=== PATIENT | female | born 1980 | race Caucasian/White ===

== ENCOUNTER 2017-01-20 17:18 | Observation (INO) | payer OTHER ==
[2017-01-20] MEDS ORDERED: PEPCID 20 MG IV PREMIX* 50 ML IV SCH (18:02)
[2017-01-20] MEDS ORDERED: NORCO 5/325 MG TAB PO PRN (18:02)
[2017-01-20] MEDS ORDERED: ZOFRAN INJ 4 MG VIAL IVP PRN (18:02)
[2017-01-20] MEDS ORDERED: IMITREX INJ SC ONE ×2 (18:02→20:00)
[2017-01-20] MEDS ORDERED: TYLENOL 325 MG TAB PO PRN (18:02)
[2017-01-20] MEDS ORDERED: AMBIEN PO PRN (18:02)
[2017-01-20 18:22] LABS: BASOPHILS # (AUTO) 0.1 X10^3/uL (0.0-0.1); BASOPHILS % (AUTO) 0.6 % (0.2-1.0); EOSINOPHILS # (AUTO) 0.1 x10^3/uL (0.0-0.2); EOSINOPHILS % (AUTO) 0.4 % (0.9-2.9); HEMATOCRIT 39.9 % (36.0-47.0); HEMOGLOBIN 13.1 g/dL (12.0-16.0); LYMPHOCYTES % (AUTO) 20.9 % (21.0-51.0); MEAN CORPUSCULAR HGB CONC 32.9 g/dL (33.0-35.0); MEAN PLATELET VOLUME 10.2 fL (7.4-11.0); MONOCYTES # (AUTO) 0.8 x10^3/uL (0.3-0.8); MONOCYTES % (AUTO) 5.7 % (0.0-13.0); NEUTROPHILS # (AUTO) 10.5 x10^3/uL (2.2-4.8); NEUTROPHILS % (AUTO) 72.4 % (42.0-75.0); PLATELET COUNT 210 X10^3/uL (150.0-450.0); RED BLOOD COUNT 4.87 X10^6/uL (3.5-5.4); RED CELL DISTRIBUTION WIDTH 12.8 % (11.6-16.5); WHITE BLOOD COUNT 14.5 X10^3/uL (3.6-10.0)
[2017-01-20 18:40] LABS: ALANINE AMINOTRANSFERASE 17 Units/L (12-78); ALBUMIN 3.6 g/dL (3.4-5.0); ALKALINE PHOSPHATASE 115 Units/L (46-116); BLOOD UREA NITROGEN 5 mg/dL (7-18); CHLORIDE 103 mmol/L (98-107); CREATININE 0.77 mg/dL (0.55-1.02); GLUCOSE 107 mg/dL (65-99); MAGNESIUM 1.6 mg/dL (1.7-2.9); SODIUM 140 mmol/L (136-145); eGFR BLACK RACES > 60 (>60); eGFR NON BLACK RACES > 60 (>60)
[2017-01-20 18:52] LABS: ASPARTATE AMINO TRANSFERASE 11 Units/L (15-37); CARBON DIOXIDE 28.2 mmol/L (21-32)
[2017-01-20] MEDS: NS 1000 ML 1,000 ML IV SCH (20:16)
[2017-01-20] MEDS: PHENERGAN INJ 25 MG IV PRN (20:17)
[2017-01-20] MEDS: PEPCID 20 MG IV PREMIX* 20 MG/50 ML BAG IV SCH (20:17)
[2017-01-20] MEDS: DEMEROL INJ IVP PRN (20:18)
[2017-01-21] MEDS: PHENERGAN INJ 25 MG IV PRN (01:57)
[2017-01-21] MEDS: DEMEROL INJ IVP PRN (03:32)
[2017-01-21] MEDS ORDERED: ZOFRAN INJ 4 MG VIAL 16 MG, ATIVAN INJ 2 MG VIAL 1 MG, DECADRON INJ 10 MG in NS 50 ML I... IV ONE ×2 (08:27→09:30)
--- NOTE | 2017-01-21 08:33 | DR.H&P ---
H&P - History & Physical for Day of: H&P Date: 01/20/17 - Chief Complaint Chief Complaint: SEVERE HEADACHE, N/V, WEAK "FEELS DEHYDRATED" - Allergies Allergies/Adverse Reactions: Allergies Allergy/AdvReac Type Severity Reaction Status Date / Time Doxycycline Allergy Verified 11/23/16 15:10 - History of Present Illness History of Present Illness: DIRECT ADMIT FROM DR CORDERO OFFICE WITH INTRACTABLE MIGRAINE. PT WAS TREATED ONE DAY AGO FOR ACUTE MIGRAINE IN OFFICE AND ON TUESDAY IN [facility] ER WITHOUT RELIEF. PLAN TO ADMIT, IVHYDRATION LABS ON ADMISSION. PAIN AND NAUSEA CONTROL. - Past Medical History Past Medical History: Asthma, Migraines, GERD, Headaches - Past Surgical History Surgical History: Cholecystectomy, Hysterectomy - Family History Family Medical History: Diabetes Mellitus, Cancer, [place], Hypertension - Social History Does patient currently use any type of tobacco product: Yes Have you used tobacco products in the last 12 months: Yes Type of Tobacco Use: Cigarettes Does any household member use tobacco: Yes Alcohol Use: None Drug Use: None - Medications Home Medications: Gabapentin [Gabapentin] 100 mg PO PRN PRN 01/20/17 [History Confirmed 01/20/17] - Review of Systems Constitutional: Other (APPEARS IN PAIN) Eyes: Other (PHOTOPHOBIA) ENT: No Symptoms Reported Respiratory: No Symptoms Reported Cardiovascular: No Symptoms Reported Genitourinary: No Symptoms Reported Musculoskeletal: No Symptoms Reported Skin: No Symptoms Reported Neurological: Other (HEADACHE) - Physical Exam Vital Signs: Temperature 99.2 F Pulse Rate [Right] 69 Respiratory Rate 18 Blood Pressure [Right Arm] 78/45 Blood Pressure [Left Arm] 99/60 Blood Pressure [Right Arm] 95/54 Blood Pressure 109/59 O2 Sat by Pulse Oximetry 97 Oriented: Normal Eyes: Normal Ear: Normal Nose: Normal Throat: Dry Respiratory: Clear Throughout Cardiovascular: Normal : Normal Auscultation: Bowel Sounds: Normal Palpation: Normal Tenderness: Normal Skin: Decreased Turgur Musculoskeletal: Back:Lumbar Mood Description: Depressed Speech Pattern: Clear, Appropriate - Assessment/Plan (1) Intractable migraine without aura and with status migrainosus Status: Acute Plan: ADMIT, IV HYDRATION,. ADMISSION LABS, PAIN AND NAUSEA CONTROL (2) Nausea and vomiting Qualifiers: Vomiting type: V Vomiting Intractability: V Status: Acute (3) GERD (gastroesophageal reflux disease) Qualifiers: Esophagitis presence: E Status: Chronic
[2017-01-21 08:53] LABS: BASOPHILS # (AUTO) 0.1 X10^3/uL (0.0-0.1); BASOPHILS % (AUTO) 0.9 % (0.2-1.0); EOSINOPHILS # (AUTO) 0.2 x10^3/uL (0.0-0.2); EOSINOPHILS % (AUTO) 1.4 % (0.9-2.9); HEMATOCRIT 34.5 % (36.0-47.0); HEMOGLOBIN 11.3 g/dL (12.0-16.0); LYMPHOCYTES # (AUTO) 3.6 X10^3/uL (1.3-2.9); LYMPHOCYTES % (AUTO) 30.5 % (21.0-51.0); MEAN CORPUSCULAR HEMOGLOBIN 27.2 pg (27.0-34.0); MEAN CORPUSCULAR HGB CONC 32.8 g/dL (33.0-35.0); MEAN CORPUSCULAR VOLUME 83.1 fL (80.0-100.0); MEAN PLATELET VOLUME 10.3 fL (7.4-11.0); MONOCYTES # (AUTO) 0.6 x10^3/uL (0.3-0.8); MONOCYTES % (AUTO) 5.5 % (0.0-13.0); NEUTROPHILS # (AUTO) 7.2 x10^3/uL (2.2-4.8); NEUTROPHILS % (AUTO) 61.7 % (42.0-75.0); PLATELET COUNT 164 X10^3/uL (150.0-450.0); RED BLOOD COUNT 4.15 X10^6/uL (3.5-5.4); WHITE BLOOD COUNT 11.7 X10^3/uL (3.6-10.0)
[2017-01-21] MEDS ORDERED: K-LYTE EFFERVESCENT PO SCH (09:00)
[2017-01-21 09:03] LABS: ALANINE AMINOTRANSFERASE 14 Units/L (12-78); ALBUMIN 2.9 g/dL (3.4-5.0); ALKALINE PHOSPHATASE 94 Units/L (46-116); ASPARTATE AMINO TRANSFERASE 10 Units/L (15-37); BLOOD UREA NITROGEN 8 mg/dL (7-18); CARBON DIOXIDE 26.8 mmol/L (21-32); CHLORIDE 106 mmol/L (98-107); COR CA(FOR HYPOALB) 8.9 mg/dL (8.5-10.1); CREATININE 0.79 mg/dL (0.55-1.02); GLUCOSE 106 mg/dL (65-99); MAGNESIUM 1.6 mg/dL (1.7-2.9); SODIUM 140 mmol/L (136-145); TOTAL PROTEIN 5.7 g/dL (6.4-8.2); eGFR BLACK RACES > 60 (>60); eGFR NON BLACK RACES > 60 (>60)
[2017-01-21] MEDS: PEPCID 20 MG IV PREMIX* 20 MG/50 ML BAG IV SCH (09:43)
[2017-01-21] MEDS: NS 1000 ML 1,000 ML IV SCH ×2 (12:03→12:04)
[2017-01-21 13:45] VITALS: BP 87/54
== END 2017-01-21 14:50 | disposition home or self-care (01) ==
LOC: OBS 17:18
PROVIDERS: ADMIT Internal Medicine; ATTEND Internal Medicine
DX: G43.011 Migraine without aura, intractable, with status migrainosus (principal); R11.2 Nausea with vomiting, unspecified; D72.828 Other elevated white blood cell count; K21.9 Gastro-esophageal reflux disease without esophagitis; E87.6 Hypokalemia
CPT/HCPCS: 36415; 80053; 83735; 84132; 85025; A4222; S0028; G0378; J2175; J2405; J2550; J3030

== ENCOUNTER 2017-01-27 10:07 | Day surgery (SDC) | payer OTHER ==
[2017-01-27] MEDS ORDERED: D5 LR 1000 ML 1,000 ML IV ONE (10:36)
[2017-01-27] MEDS ORDERED: DIPRIVAN VIAL 20 ML ONE (12:05)
[2017-01-27 14:40] VITALS: BP 100/60
== END 2017-01-27 12:48 | disposition home or self-care (01) ==
LOC: SURG1 10:07
PROVIDERS: ATTEND Internal Medicine Gastroenterology
PROC: 0DJ08ZZ Inspection of Upper Intestinal Tract, Via Natural or Artificial Opening Endoscopic (ICD-10-PCS; principal; 2017-01-27 14:45)
PROC: 0DB88ZX Excision of Small Intestine, Via Natural or Artificial Opening Endoscopic, Diagnostic (ICD-10-PCS; principal; 2017-01-27 14:45)
PROC: 0D757ZZ Dilation of Esophagus, Via Natural or Artificial Opening (ICD-10-PCS; principal; 2017-01-27 14:45)
PROC: 0DB68ZX Excision of Stomach, Via Natural or Artificial Opening Endoscopic, Diagnostic (ICD-10-PCS; principal; 2017-01-27 14:45)
DX: R13.19 Other dysphagia (principal); R11.2 Nausea with vomiting, unspecified; R10.13 Epigastric pain; K21.9 Gastro-esophageal reflux disease without esophagitis; R19.7 Diarrhea, unspecified; K20.8 Other esophagitis; K22.2 Esophageal obstruction; K22.4 Dyskinesia of esophagus; K29.60 Other gastritis without bleeding
CPT/HCPCS: A4217; J3490; J7120

== ENCOUNTER → 2017-04-26 | Outpatient (CLI) | payer OTHER ==
[2017-04-26 09:32] LABS: BASOPHILS # (AUTO) 0.1 X10^3/uL (0.0-0.1); BASOPHILS % (AUTO) 0.5 % (0.2-1.0); EOSINOPHILS % (AUTO) 0.1 % (0.9-2.9); HEMATOCRIT 39.5 % (36.0-47.0); HEMOGLOBIN 13.4 g/dL (12.0-16.0); LYMPHOCYTES # (AUTO) 1.9 X10^3/uL (1.3-2.9); LYMPHOCYTES % (AUTO) 14.3 % (21.0-51.0); MEAN CORPUSCULAR HEMOGLOBIN 27.8 pg (27.0-34.0); MEAN CORPUSCULAR HGB CONC 33.8 g/dL (33.0-35.0); MEAN CORPUSCULAR VOLUME 82.1 fL (80.0-100.0); MEAN PLATELET VOLUME 10.5 fL (7.4-11.0); MONOCYTES # (AUTO) 0.7 x10^3/uL (0.3-0.8); MONOCYTES % (AUTO) 5.1 % (0.0-13.0); NEUTROPHILS # (AUTO) 10.6 x10^3/uL (2.2-4.8); PLATELET COUNT 219 X10^3/uL (150.0-450.0); RED BLOOD COUNT 4.82 X10^6/uL (3.5-5.4); RED CELL DISTRIBUTION WIDTH 13.3 % (11.6-16.5); WHITE BLOOD COUNT 13.2 X10^3/uL (3.6-10.0)
[2017-04-26 09:44] LABS: ALANINE AMINOTRANSFERASE 15 Units/L (12-78); ALBUMIN 3.6 g/dL (3.4-5.0); ALKALINE PHOSPHATASE 134 Units/L (46-116); ASPARTATE AMINO TRANSFERASE 12 Units/L (15-37); BLOOD UREA NITROGEN 5 mg/dL (7-18); CALCIUM 9.3 mg/dL (8.5-10.1); CARBON DIOXIDE 28.2 mmol/L (21-32); CHLORIDE 103 mmol/L (98-107); GLUCOSE 100 mg/dL (65-99); SODIUM 141 mmol/L (136-145); TOTAL PROTEIN 7.3 g/dL (6.4-8.2); eGFR BLACK RACES > 60 (>60); eGFR NON BLACK RACES > 60 (>60)
--- NOTE | 2017-04-26 09:50 | RAD ---
Examination: X-rays of the left ankle. Clinical history: Left ankle pain, no known injury. Technique: Three views of the left ankle were obtained. Comparison: None available. Findings: No acute fracture, dislocation, or destructive bony lesion is noted. No soft tissue abnormality is noted. Impression: 1. Negative x-rays of the left ankle. Reported By:
--- NOTE | 2017-04-26 09:52 | RAD ---
HISTORY: Nontraumatic left knee pain Study: Left knee two view Comparison: None Findings: No evidence for acute cortical disruption or dislocation. The medial and lateral tibiofemoral nneka rtments appear unremarkable without loss of significant joint space. The lateral radiograph fails t o demonstrate significant joint effusion. Patellofemoral compartment is normal in its appearance. IMPRESSION: 1. Negative exam. Reported By:
[2017-04-26 10:03] LABS: ERYTHROCYTE SEDIMENTATION RATE 5 MM/HOUR (0-20)
== END ==
LOC: LAB 08:59
PROVIDERS: ATTEND Nurse Practitioner Family
DX: G47.09 Other insomnia (principal); R42 Dizziness and giddiness; R53.83 Other fatigue; M25.572 Pain in left ankle and joints of left foot; R26.89 Other abnormalities of gait and mobility; L98.8 Other specified disorders of the skin and subcutaneous tissue; M25.562 Pain in left knee
CPT/HCPCS: 36415; 73560; 73610; 80053; 82306; 85025; 85652; 86140

== ENCOUNTER → 2017-05-06 | Outpatient (CLI) | payer OTHER ==
--- NOTE | 2017-05-06 14:51 | VAS ---
HISTORY: Anesthesia scan. Study: Right lower extremity arterial Doppler. Comparison: None. Technique: Multiple cao scale and color flow Doppler images of the right lower extremity arterial s ystem were obtained. Interrogation of the common femoral artery, superficial femoral artery, poplit eal artery, and tibial arteries was performed. Findings: Triphasic waveforms are seen throughout the right lower extremity from the common femoral arterial s ystem to the tibial runoff. IMPRESSION: 1. Normal sonographic evaluation of the right lower extremity arterial system. Reported By:
== END ==
LOC: RAD 13:50
PROVIDERS: ATTEND Nurse Practitioner Family
DX: R09.89 Other specified symptoms and signs involving the circulatory and respiratory systems (principal); R20.0 Anesthesia of skin
CPT/HCPCS: 93925

== ENCOUNTER 2017-06-25 12:04 | Emergency (ER) | payer OTHER ==
[2017-06-25 12:12] VITALS: BP 133/65; BMI 25.0
--- NOTE | 2017-06-25 12:15 | DR.GENAD ---
HPI - HPI Comment HPI Comment: SUBSTERNAL AND ABDOMINAL PAIN WITH NAUSEA FOR SEVERAL HOURS. GETTING WORSE. NO FEVER. NO URI SYMTOMS. - Complaint/Symptoms Chief Complaint Doctors Comments: ABDOMINAL PAIN, CHEST PAIN. - Nurses notes reviewed Nurses Notes Review: Yes - Source History Provided: Patient - Mode of Arrival Mode of Arrival: Ambulatory - Timing Came on: Suddenly - Duration Duration: Constant Duration: Hours - Severity Severity: Severe PMH - PMH Past Medical History: Asthma, Migraines, GERD, Headaches Past Surgical History: Yes Surgical History: Cholecystectomy, Hysterectomy - Family History Family Medical History: Diabetes Mellitus, Cancer, [place], Hypertension - Social History Do you use any recreational Drugs:: No ROS - Review of Systems Constitutional: No Symptoms Reported Eyes: No Symptoms Reported ENTM: No Symptoms Reported Respiratoy: Short of Breath Cardiovascular: Chest Pain Gastrointestinal/Abdominal: Abdominal Pain, Nausea Neurological: No Symptoms Reported Musculoskeletal: No Symptoms Reported Integumentary: No Symptoms Reported Hematologic/Lymphatic: No Symptoms Reported Endocrine: No Symptoms Reported All Other Systems: Reviewed and Negative PE - Vital Signs Vitals: Pulse Rate 70 Respiratory Rate 18 Blood Pressure [Right Arm] 113/56 Blood Pressure [Left Arm] 87/54 Blood Pressure [Right Arm] 95/54 Blood Pressure 133/65 O2 Sat by Pulse Oximetry 100 - General Limitations: No Limitations General Appearance: Alert - Head Head Exam: Normal Inspection - Eyes Eye exam: Normal Appearance - ENT ENT Exam: Normal External Ear Exam External Ear Exam: Normal External Inspection TM/Canal Exam: Bilateral Normal Nose Exam: Normal Nose Exam Mouth Exam: Normal Inspection Throat Exam: Normal Inspection - Neck Neck Exam: Trachea Midline - Chest Chest Inspection: Symmetric Chest Wall Rise - Respiratory Respiratory Exam: Normal Lung Sounds Bilat Respiratory Exam: Bilateral Clear to Auscultation - Cardiovascular Cardiovascular Exam: Regular Rate, Normal Rhythm, Normal Heart Sounds - Abdominal Exam Abdominal Exam: Normal Bowel Sounds, Soft, Tenderness Abdominal Tenderness: Diffuse, Moderate - Extremities Extremities Exam: Normal Inspection - Back Back Exam: Normal Inspection - Neurologic Neurological Exam: Alert, Oriented X3 - Psychiatric Psychiatric Exam: Normal Affect, Normal Mood - Skin Skin Exam: Normal Color MDM - Differential Diagnosis Differential Diagnosis: CHEST PAIN, ABDOMINAL PAIN Course - Treatment Treatment: SEE ORDERS. - Education/Counseling Education/Counseling: Patient, Education Educated On: Treatment, Diagnosis, Needs for Follow Up ROR - Labs Reviewed Laboratory Results Reviewed?: Yes Result Diagrams: 06/25/17 12:37 06/25/17 12:37 Laboratory: WBC 13.3 X10^3/uL (3.6-10.0) H 06/25/17 12:37 RBC 4.65 X10^6/uL (3.5-5.4) 06/25/17 12:37 Hgb 13.1 g/dL (12.0-16.0) 06/25/17 12:37 Hct 39.4 % (36.0-47.0) 06/25/17 12:37 MCV 84.7 fL (80.0-100.0) 06/25/17 12:37 MCH 28.2 pg (27.0-34.0) 06/25/17 12:37 MCHC 33.3 g/dL (33.0-35.0) 06/25/17 12:37 RDW 14.6 % (11.6-16.5) 06/25/17 12:37 Plt Count 212 X10^3/uL (150.0-450.0) 06/25/17 12:37 MPV 9.3 fL (7.4-11.0) 06/25/17 12:37 Neut % 72.9 % (42.0-75.0) 06/25/17 12:37 Lymph % 19.6 % (21.0-51.0) L 06/25/17 12:37 [place] % 5.4 % (0.0-13.0) 06/25/17 12:37 Eos % 1.4 % (0.9-2.9) 06/25/17 12:37 Baso % 0.7 % (0.2-1.0) 06/25/17 12:37 Neut # 9.7 x10^3/uL (2.2-4.8) H 06/25/17 12:37 Lymph # 2.6 X10^3/uL (1.3-2.9) 06/25/17 12:37 [place] # 0.7 x10^3/uL (0.3-0.8) 06/25/17 12:37 Eos # 0.2 x10^3/uL (0.0-0.2) 06/25/17 12:37 Baso # 0.1 X10^3/uL (0.0-0.1) 06/25/17 12:37 Absolute Nucleated RBC 0.0 /100WBC 06/25/17 12:37 Sodium 142 mmol/L (136-145) 06/25/17 12:37 Corrected Sodium TNP 06/25/17 12:37 Potassium 3.9 mmol/L (3.5-5.1) 06/25/17 12:37 Chloride 103 mmol/L (98-107) 06/25/17 12:37 Carbon Dioxide 33.1 mmol/L (21-32) H 06/25/17 12:37 BUN 7 mg/dL (7-18) 06/25/17 12:37 Creatinine 0.71 mg/dL (0.55-1.02) 06/25/17 12:37 Est GFR (MDRD) Af Amer > 60 (>60) 06/25/17 12:37 Est GFR (MDRD) Non-Af > 60 (>60) 06/25/17 12:37 Glucose 102 mg/dL (65-99) H 06/25/17 12:37 Calcium 8.7 mg/dL (8.5-10.1) 06/25/17 12:37 Corrected Calcium TNP 06/25/17 12:37 Total Bilirubin 0.20 mg/dL (0.2-1.0) 06/25/17 12:37 AST 47 Units/L (15-37) H 06/25/17 12:37 ALT 37 Units/L (12-78) 06/25/17 12:37 Alkaline Phosphatase 123 Units/L (46-116) H 06/25/17 12:37 Creatine Kinase 33 Units/L (26-192) 06/25/17 12:37 CK-MB (CK-2) < 1.0 ng/mL (0-4.0) 06/25/17 12:37 CK/CKMB % Calc 3.0 % (<4) 06/25/17 12:37 Troponin I < 0.02 ng/mL (0-1.5) 06/25/17 12:37 Total Protein 6.9 g/dL (6.4-8.2) 06/25/17 12:37 Albumin 3.5 g/dL (3.4-5.0) 06/25/17 12:37 Globulin 3.4 g/dL (2.5-4.5) 06/25/17 12:37 Albumin/Globulin Ratio 1.0 Ratio (1.1-2.1) L 06/25/17 12:37 Amylase 30 Units/L (25-115) 06/25/17 12:37 Lipase 91 Units/L (73-393) 06/25/17 12:37 - XRAY XRAY Interpreted by: Radiologist XRAY Findings: REPORT DISCUSS WITH PATIENT. - EKG Rhythm: NSR (EKG NOTED) - Diagnosis Discharge Problem: Chest pain Qualifiers: Chest pain type: precordial pain Qualified Code(s): R07.2 - Precordial pain Abdominal pain Qualifiers: Abdominal location: generalized Qualified Code(s): R10.84 - Generalized abdominal pain - Discharge Plan Disposition: 01 HOME, SELF-CARE Condition: Stable Prescriptions: Ketorolac Tromethamine [Toradol Tab] 10 mg PO Q8H PRN #15 tab PRN Reason: Pain Ranitidine HCl [ZANTAC TAB 150 MG *] 150 mg PO BID #60 tab - Follow ups/Referrals Follow ups/Referrals: JULIÁN BLOUNT [Primary Care Provider] - 3 days - Instructions Instructions: Abdominal Pain, Adult, [id number], Chest Pain Observation Additional Instructions: RETURN TO ED IF WORSE.
[2017-06-25] MEDS ORDERED: ZOFRAN INJ 4 MG VIAL IVP ONE (12:17)
[2017-06-25] MEDS ORDERED: DEMEROL INJ IVP ONE (12:20)
[2017-06-25 12:43] LABS: BASOPHILS # (AUTO) 0.1 X10^3/uL (0.0-0.1); BASOPHILS % (AUTO) 0.7 % (0.2-1.0); EOSINOPHILS # (AUTO) 0.2 x10^3/uL (0.0-0.2); EOSINOPHILS % (AUTO) 1.4 % (0.9-2.9); HEMATOCRIT 39.4 % (36.0-47.0); HEMOGLOBIN 13.1 g/dL (12.0-16.0); LYMPHOCYTES # (AUTO) 2.6 X10^3/uL (1.3-2.9); LYMPHOCYTES % (AUTO) 19.6 % (21.0-51.0); MEAN CORPUSCULAR HEMOGLOBIN 28.2 pg (27.0-34.0); MEAN CORPUSCULAR HGB CONC 33.3 g/dL (33.0-35.0); MEAN CORPUSCULAR VOLUME 84.7 fL (80.0-100.0); MEAN PLATELET VOLUME 9.3 fL (7.4-11.0); MONOCYTES # (AUTO) 0.7 x10^3/uL (0.3-0.8); MONOCYTES % (AUTO) 5.4 % (0.0-13.0); NEUTROPHILS # (AUTO) 9.7 x10^3/uL (2.2-4.8); NEUTROPHILS % (AUTO) 72.9 % (42.0-75.0); PLATELET COUNT 212 X10^3/uL (150.0-450.0); RED BLOOD COUNT 4.65 X10^6/uL (3.5-5.4); RED CELL DISTRIBUTION WIDTH 14.6 % (11.6-16.5); WHITE BLOOD COUNT 13.3 X10^3/uL (3.6-10.0)
[2017-06-25] MEDS ORDERED: ZOFRAN INJ 4 MG VIAL ONE (13:04)
[2017-06-25] MEDS ORDERED: DEMEROL INJ ONE (13:05)
[2017-06-25 13:11] LABS: BLOOD UREA NITROGEN 7 mg/dL (7-18); CALCIUM 8.7 mg/dL (8.5-10.1); CARBON DIOXIDE 33.1 mmol/L (21-32); CHLORIDE 103 mmol/L (98-107); CREATININE 0.71 mg/dL (0.55-1.02); GLUCOSE 102 mg/dL (65-99); SODIUM 142 mmol/L (136-145); TROPONIN I < 0.02 ng/mL (0-1.5); eGFR BLACK RACES > 60 (>60); eGFR NON BLACK RACES > 60 (>60)
[2017-06-25 13:25] LABS: ALANINE AMINOTRANSFERASE 37 Units/L (12-78); ALBUMIN 3.5 g/dL (3.4-5.0); ALKALINE PHOSPHATASE 123 Units/L (46-116); AMYLASE 30 Units/L (25-115); ASPARTATE AMINO TRANSFERASE 47 Units/L (15-37); CREATINE KINASE 33 Units/L (26-192); LIPASE 91 Units/L (73-393); TOTAL PROTEIN 6.9 g/dL (6.4-8.2)
[2017-06-25 13:58] LABS: CREATINE KINASE MB < 1.0 ng/mL (0-4.0)
--- NOTE | 2017-06-25 17:50 | RAD ---
CLINICAL HISTORY: Pain FINDINGS: Unremarkable pulmonary parenchyma, osseous structures and cardiac silhouette. Non obstructive bowel gas pattern. Moderate amount of stool suggestive of constipation. IMPRESSION: Non obstructive bowel gas pattern. Constipation. Reported By:
== END 2017-06-25 15:30 | disposition home or self-care (01) ==
LOC: ER 12:23
DX: R07.2 Precordial pain (principal); R10.84 Generalized abdominal pain; K59.09 Other constipation
CPT/HCPCS: 36415; 74022; 80053; 82150; 82550; 82553; 83690; 84484; 85025; 93005; 93010; 96365; 96374; 96375; 99283; J2175; J2405

== ENCOUNTER 2017-06-30 11:52 | Emergency (ER) | payer OTHER ==
[2017-06-30 12:07] VITALS: BMI 21.4
--- NOTE | 2017-06-30 14:04 | DR.FB ---
HPI - Time Seen Time seen: 13:50 - PCP Primary Care Physician: JULIÁN BLOUNT - HPI Comment HPI Comment: "Feels like I got something stuck in my throat." - Complaint Chief Complaint:: WOKE WITH PAIN THIS AM ON RIGHT SIDE LATERAL. FEELS LIKE SOMETHING STUCK IN HER THROAT. LAST TIME HAD THIS PAIN HAD GALLSTONE STUCK IN LIVER DUCT Chief Complaint Doctors Comments: "My throat hurts". - Reviewed Nurses Notes Review: Yes - Source History Provided: Patient - Mode of Arrival Mode of Arrival: Ambulatory - Location Location: Throat - Timing Onset of Chief Complaint: 06/30/17 - Context Foreign body: Unknown Removal: Was not attempted - Severity Pain Severity: Mild Associated signs and symptoms: None Ability to handle secretions: Normal - Associated signs and symptoms Associated sign and symptoms: None, Pain (RUQ pain) PMH - PMH Past Medical History: Yes Past Medical History: Asthma, Migraines, GERD, Headaches Past Surgical History: Yes Surgical History: Cholecystectomy, Hysterectomy, Other Past Surgical History Comment: EARS, NOSE - Family History History of Family Medical Conditions: Yes Family Medical History: Diabetes Mellitus, Cancer, [place], Hypertension - Social History Type of Tobacco Use: Cigarettes Alcohol Use: None Do you use any recreational Drugs:: No Lives With: Family Lives Where: Home - infectious screening In the last 2 months have you had wt loss of >10#?: NO Have you had fever, night sweats or hemotysis?: No Have you traveled outside the country in the last 6 months?: No Isolation: Standard ROS - Review of Systems Eyes: No Symptoms Reported ENTM: No Symptoms Reported Respiratoy: No Symptoms Reported Cardiovascular: No Symptoms Reported Gastrointestinal/Abdominal: See HPI, Abdominal Pain, Nausea, Vomiting Genitourinary: No Symptoms Reported Neurological: No Symptoms Reported Musculoskeletal: No Symptoms Reported Integumentary: No Symptoms Reported Hematologic/Lymphatic: No Symptoms Reported Endocrine: No Symptoms Reported Psychiatric: No Symptoms Reported All Other Systems: Reviewed and Negative PE - Vital Signs Vitals: Temperature 98.0 F Pulse Rate 84 Respiratory Rate 16 Blood Pressure [Right Arm] 113/56 Blood Pressure [Left Arm] 87/54 Blood Pressure [Right Arm] 95/54 Blood Pressure 125/78 O2 Sat by Pulse Oximetry 99 - General Limitations: No Limitations General Appearance: Alert, In No Apparent Distress - Eyes Eye exam: Normal Appearance - Neck Neck Exam: Normal Inspection, Full ROM, Trachea Midline - Chest Chest Inspection: Normal Inspection, Symmetric Chest Wall Rise - Respiratory Respiratory Exam: Normal Lung Sounds Bilat Respiratory Exam: Bilateral Clear to Auscultation - Cardiovascular Cardiovascular Exam: Regular Rate, Normal Rhythm, Normal Heart Sounds - Abdominal Exam Abdominal Exam: Normal Bowel Sounds, Soft, Tenderness. negative: Guarding, Rebound, Rigidity, Dimnished Bowel Sounds, Hyperactive Bowel Sounds, Hypoactive Bowel Sounds, Organomegaly, Trauma Abdominal Tenderness: RUQ, Mild - Rectal Rectal Exam: Deferred - Neurologic Neurological Exam: Alert, Oriented X3, CN II-XII Intact - Psychiatric Psychiatric Exam: Normal Affect, Normal Mood - Skin Skin Exam: Warm, Dry, Intact, Normal Color MDM - Differential Diagnosis Differential Diagnosis: Esophageal obstruction, Foreign body, Other (GERD) ROR - Labs Reviewed Laboratory Results Reviewed?: Yes Result Diagrams: 06/30/17 14:48 06/30/17 14:48 Laboratory: WBC 13.6 X10^3/uL (3.6-10.0) H 06/30/17 14:48 RBC 5.03 X10^6/uL (3.5-5.4) 06/30/17 14:48 Hgb 14.3 g/dL (12.0-16.0) 06/30/17 14:48 Hct 42.6 % (36.0-47.0) 06/30/17 14:48 MCV 84.7 fL (80.0-100.0) 06/30/17 14:48 MCH 28.4 pg (27.0-34.0) 06/30/17 14:48 MCHC 33.5 g/dL (33.0-35.0) 06/30/17 14:48 RDW 14.9 % (11.6-16.5) 06/30/17 14:48 Plt Count 240 X10^3/uL (150.0-450.0) 06/30/17 14:48 MPV 9.4 fL (7.4-11.0) 06/30/17 14:48 Neut % 77.7 % (42.0-75.0) H 06/30/17 14:48 Lymph % 15.9 % (21.0-51.0) L 06/30/17 14:48 [place] % 4.7 % (0.0-13.0) 06/30/17 14:48 Eos % 1.2 % (0.9-2.9) 06/30/17 14:48 Baso % 0.5 % (0.2-1.0) 06/30/17 14:48 Neut # 10.6 x10^3/uL (2.2-4.8) H 06/30/17 14:48 Lymph # 2.2 X10^3/uL (1.3-2.9) 06/30/17 14:48 [place] # 0.6 x10^3/uL (0.3-0.8) 06/30/17 14:48 Eos # 0.2 x10^3/uL (0.0-0.2) 06/30/17 14:48 Baso # 0.1 X10^3/uL (0.0-0.1) 06/30/17 14:48 Absolute Nucleated RBC 0.0 /100WBC 06/30/17 14:48 Sodium 140 mmol/L (136-145) 06/30/17 14:48 Corrected Sodium TNP 06/30/17 14:48 Potassium 3.9 mmol/L (3.5-5.1) 06/30/17 14:48 Chloride 101 mmol/L (98-107) 06/30/17 14:48 Carbon Dioxide 29.9 mmol/L (21-32) 06/30/17 14:48 BUN 7 mg/dL (7-18) 06/30/17 14:48 Creatinine 0.62 mg/dL (0.55-1.02) 06/30/17 14:48 Est GFR (MDRD) Af Amer > 60 (>60) 06/30/17 14:48 Est GFR (MDRD) Non-Af > 60 (>60) 06/30/17 14:48 Glucose 96 mg/dL (65-99) 06/30/17 14:48 Calcium 9.3 mg/dL (8.5-10.1) 06/30/17 14:48 Corrected Calcium TNP 06/30/17 14:48 Total Bilirubin 0.30 mg/dL (0.2-1.0) 06/30/17 14:48 AST 55 Units/L (15-37) H 06/30/17 14:48 ALT 181 Units/L (12-78) H 06/30/17 14:48 Alkaline Phosphatase 212 Units/L (46-116) H 06/30/17 14:48 Total Protein 8.0 g/dL (6.4-8.2) 06/30/17 14:48 Albumin 4.0 g/dL (3.4-5.0) 06/30/17 14:48 Globulin 4.0 g/dL (2.5-4.5) 06/30/17 14:48 Albumin/Globulin Ratio 1.0 Ratio (1.1-2.1) L 06/30/17 14:48 Amylase 26 Units/L (25-115) 06/30/17 14:48 H. pylori IgG Antibody Negative (NEGATIVE) 06/30/17 14:48 - Diagnosis Discharge Problem: Colitis Abdominal pain Qualifiers: Abdominal location: right upper quadrant Qualified Code(s): R10.11 - Right upper quadrant pain Nausea and vomiting Qualifiers: Vomiting type: unspecified Vomiting Intractability: non-intractable Qualified Code(s): R11.2 - Nausea with vomiting, unspecified Dysphagia Qualifiers: Dysphagia type: pharyngeal phase Qualified Code(s): R13.13 - Dysphagia, pharyngeal phase - Discharge Plan Condition: Stable Prescriptions: Methylprednisolone Dosepak 4Mg [MEDROL DOSEPAK (4 mg tab x 21)] 1 brady PO ONCE # 1 brady - Follow ups/Referrals Follow ups/Referrals: JULIÁN BLOUNT [Primary Care Provider] - 3 days - Instructions Instructions: Colitis, Ulcerative Colitis, Adult
[2017-06-30 14:54] LABS: BASOPHILS # (AUTO) 0.1 X10^3/uL (0.0-0.1); BASOPHILS % (AUTO) 0.5 % (0.2-1.0); EOSINOPHILS # (AUTO) 0.2 x10^3/uL (0.0-0.2); EOSINOPHILS % (AUTO) 1.2 % (0.9-2.9); HEMATOCRIT 42.6 % (36.0-47.0); HEMOGLOBIN 14.3 g/dL (12.0-16.0); LYMPHOCYTES # (AUTO) 2.2 X10^3/uL (1.3-2.9); LYMPHOCYTES % (AUTO) 15.9 % (21.0-51.0); MEAN CORPUSCULAR HEMOGLOBIN 28.4 pg (27.0-34.0); MEAN CORPUSCULAR HGB CONC 33.5 g/dL (33.0-35.0); MEAN CORPUSCULAR VOLUME 84.7 fL (80.0-100.0); MEAN PLATELET VOLUME 9.4 fL (7.4-11.0); MONOCYTES # (AUTO) 0.6 x10^3/uL (0.3-0.8); MONOCYTES % (AUTO) 4.7 % (0.0-13.0); NEUTROPHILS # (AUTO) 10.6 x10^3/uL (2.2-4.8); NEUTROPHILS % (AUTO) 77.7 % (42.0-75.0); PLATELET COUNT 240 X10^3/uL (150.0-450.0); RED BLOOD COUNT 5.03 X10^6/uL (3.5-5.4); RED CELL DISTRIBUTION WIDTH 14.9 % (11.6-16.5); WHITE BLOOD COUNT 13.6 X10^3/uL (3.6-10.0)
--- NOTE | 2017-06-30 15:04 | RAD ---
HISTORY: Foreign body Study: Acute abdominal series Comparison: December 31, 2016 Findings: The cardiac silhouette is normal in size. No focal consolidation, effusion or pneumothorax is identif ied. The osseous thorax is unremarkable. No radiopaque foreign body within the thorax is seen. The visualized bowel gas pattern is nonobstructive. No convincing pneumatosis or free intraperitoneal air is identified. No pathologic calcifications are seen. Apart from right upper quadrant cholecyste ctomy clips, no unexpected radiopaque foreign body is identified within the abdomen or pelvis. IMPRESSION: No acute cardiopulmonary or abdominal abnormality. Specifically, no radiopaque foreign body identifie d. Reported By:
[2017-06-30 15:08] LABS: ALANINE AMINOTRANSFERASE 181 Units/L (12-78); ALKALINE PHOSPHATASE 212 Units/L (46-116); AMYLASE 26 Units/L (25-115); ASPARTATE AMINO TRANSFERASE 55 Units/L (15-37); BLOOD UREA NITROGEN 7 mg/dL (7-18); CALCIUM 9.3 mg/dL (8.5-10.1); CARBON DIOXIDE 29.9 mmol/L (21-32); CHLORIDE 101 mmol/L (98-107); CREATININE 0.62 mg/dL (0.55-1.02); GLUCOSE 96 mg/dL (65-99); SODIUM 140 mmol/L (136-145); eGFR BLACK RACES > 60 (>60); eGFR NON BLACK RACES > 60 (>60)
--- NOTE | 2017-06-30 15:12 | RAD ---
HISTORY: Foreign body Study: AP and lateral neck Comparison: None Soft tissue Findings: The retropharyngeal soft tissues are normal. The epiglottis is normal. No masses or foreign bodies ar e identified. IMPRESSION: No significant abnormality identified Reported By:
[2017-06-30] MEDS ORDERED: NS 1000 ML 300 ML IV ONE (15:18)
[2017-06-30] MEDS ORDERED: NS 1000 ML 1,000 ML ONE (15:52)
[2017-06-30] MEDS ORDERED: NS 100 ML IV 100 ML IV ONE (15:52)
[2017-06-30] MEDS ORDERED: TORADOL 30 MG VIAL IVP ONE (16:44)
[2017-06-30] MEDS ORDERED: TORADOL 30 MG VIAL ONE (16:47)
--- NOTE | 2017-06-30 17:54 | CT ---
CT ABDOMEN AND PELVIS WITH IV CONTRAST CLINICAL HISTORY: 37-year-old female with right upper quadrant pain. COMPARISON: CT abdomen pelvis December 17, 2012. TECHNIQUE: Multiple contiguous axial images of the abdomen and pelvis were obtained following the adm inistration of 100 cc Omnipaque 350 intravenously. Coronal and sagittal reformatted imaging was subm itted. FINDINGS: The lung bases are clear without pulmonary nodules, masses, or pleural fluid collections. Bilateral subsegmental dependent atelectasis. The inferior imaged mediastinum and heart is normal in size and t here is no pericardial effusion. Liver, pancreas and spleen are unremarkable. 1 cm splenule within the splenic hilum. Status post chol ecystectomy. The adrenal glands are normal bilaterally. The kidneys perfuse in a normal fashion and the ureters r un in an unobstructed course to a well distended urinary bladder. Status post hysterectomy. Vaginal cuff and adnexa are unremarkable. Circumferential edematous appearance that spans from the body of the stomach, through the duodenum an d jejunum with mild wall thickening that is also present within the distal/terminal ileum and through out the imaged colon and anal canal with relative sparing of the rectum. Increased vascularity throug hout the mesenteries. The appendix is normal in appearance. No obstruction or evidence of fistula and there is no free flui d or free air within the peritoneal cavity. There are no pathologically enlarged lymph nodes in the abdomen or pelvis. The arteriovascular structures are within normal limits. Soft tissues are normal. The osseous structures are intact without fracture or malalignment. IMPRESSION: 1. Circumferential wall edema and thickening spanning from the body of the stomach throughout the duo denum and jejunum, distal/terminal ileum, colon and anal canal with relative sparing of the rectum mo st concerning for Crohn's disease. Correlate clinically. Additional considerations include infectious gastro enterocolitis and autoimmune disorder such as scleroderma. 2. Status post cholecystectomy with normal appearing appendix. Reported By:
[2017-06-30] MEDS ORDERED: DECADRON INJ IM ONE (18:11)
[2017-06-30] MEDS ORDERED: AMPICILLIN IV ONE (18:17)
[2017-06-30] MEDS ORDERED: NS IV ONE (18:17)
[2017-06-30] MEDS ORDERED: AMPICILLIN VIAL 1 GM ONE (18:29)
[2017-06-30] MEDS ORDERED: DECADRON INJ ONE (18:29)
[2017-06-30] MEDS ORDERED: NS 50 ML IV 50 ML IV ONE (18:30)
[2017-06-30 19:59] VITALS: BP 107/60
== END 2017-06-30 19:55 | disposition home or self-care (01) ==
LOC: ER 12:11
DX: R10.11 Right upper quadrant pain (principal); R11.2 Nausea with vomiting, unspecified; R13.13 Dysphagia, pharyngeal phase
CPT/HCPCS: 36415; 70360; 74022; 74177; 80053; 82150; 85025; 86677; 96365; 96372; 96374; 96375; 99283; A4222; J0290; J1100; J1885

== ENCOUNTER 2018-03-01 15:29 | Observation (INO) | payer OTHER ==
[2018-03-01 16:45] VITALS: BMI 25.8
[2018-03-01] MEDS ORDERED: KLONOPIN TAB 0.5 MG PO PRN (17:37)
--- NOTE | 2018-03-01 17:43 | DR.H&P ---
H&P - History & Physical for Day of: H&P Date: 03/01/18 - Chief Complaint Chief Complaint: hearing voices, "feel like I'm having a nervous breakdown" - Allergies Allergies/Adverse Reactions: Allergies Allergy/AdvReac Type Severity Reaction Status Date / Time doxycycline Allergy Verified 06/30/17 11:58 - History of Present Illness History of Present Illness: 37 WF DIRECT ADMIT FROM DR FERNANDO OFFICE CO HEARING VOICE FOR A WEEK OR SO, VOICES ARE GETTING WORSE AND TELLING HER TO HURT HERSELF. PT DENIES SUICIDAL THOUGHTS OR PLANS, PT JUST FEELS VERY NERVOUS BECAUSE OF HALLUCINATIONS. PT STATES SHE WAS DIAGNOSED WITH BIPOLAR SEVERAL YEARS AGO BUT HAD NOT HAD COMPLICATIONS WITH HALLUCINATIONS. PT ADMITTED FOR MEDICAL EVALUATION AND MENTAL HEALTH CONSULTATION FOR MEDICATION CONTROL - Past Medical History Past Medical History: Asthma, Migraines, GERD, Headaches - Past Surgical History Surgical History: Cholecystectomy, Hysterectomy, Other - Family History Family Medical History: Diabetes Mellitus, Cancer, [place], Hypertension - Social History Does patient currently use any type of tobacco product: Yes Have you used tobacco products in the last 12 months: Yes Type of Tobacco Use: Cigarettes How many years tobacco product used: 25 Does any household member use tobacco: Yes Alcohol Use: None Drug Use: None - Medications Home Medications: Clonazepam [Klonopin Tab 0.5 mg] 0.5 mg PO BID 03/01/18 [History Confirmed 03/01] Promethazine HCl [PHENERGAN TAB 25 MG *] 25 mg PO Q6H PRN 03/01/18 [History Confirmed 03/01/18] Quetiapine Fumarate [Seroquel 50 mg] 50 mg PO HS 03/01/18 [History Confirmed ] - Review of Systems Constitutional: No Symptoms Reported Eyes: No Symptoms Reported ENT: No Symptoms Reported Respiratory: No Symptoms Reported Cardiovascular: No Symptoms Reported Gastrointestinal: Nausea, Diarrhea Genitourinary: No Symptoms Reported Musculoskeletal: No Symptoms Reported Skin: Rash (FACE) Neurological: Other (ANXIETY, HALLUCINATIONS) - Physical Exam Vital Signs: Temperature 98.3 F Pulse Rate [Right Brachial] 85 Respiratory Rate 20 Blood Pressure [Right Arm] 123/59 Blood Pressure [Left Arm] 87/54 Blood Pressure [Right Arm] 95/54 Blood Pressure 101/61 O2 Sat by Pulse Oximetry 98 Oriented: Normal Eyes: Normal Ear: Normal Nose: Normal Throat: Normal Respiratory: Clear Throughout Cardiovascular: Normal : Normal Auscultation: Bowel Sounds: Normal Palpation: Normal Tenderness: Epigastric Skin: Rash (REDNESS TO NASOLABIAL FOLDS WITH YELLOW SCALES, PEELING) Psychiatric: Anxiety Mood Description: Fearful, Anxious Affect: Anxious Speech Pattern: Clear - Assessment/Plan (1) Auditory hallucination Status: Acute Plan: ADMIT, ADMISSION LABS. RESUME HOME MEDS. CONSULT MENTAL HEALTH FOR PSYCH EVALUATION AND MEDICATION REGULATION (2) Acute anxiety Status: Acute (3) GERD (gastroesophageal reflux disease) Status: Chronic (4) Hx of migraines Status: Chronic (5) Anxiety in acute stress reaction Status: Acute
[2018-03-01 18:00] LABS: BASOPHILS # (AUTO) 0.1 X10^3/uL (0.0-0.1); BASOPHILS % (AUTO) 0.7 % (0.2-1.0); EOSINOPHILS # (AUTO) 0.2 x10^3/uL (0.0-0.2); EOSINOPHILS % (AUTO) 1.7 % (0.9-2.9); HEMATOCRIT 40.9 % (36.0-47.0); HEMOGLOBIN 13.9 g/dL (12.0-16.0); LYMPHOCYTES % (AUTO) 26.4 % (21.0-51.0); MEAN CORPUSCULAR HEMOGLOBIN 27.7 pg (27.0-34.0); MEAN CORPUSCULAR VOLUME 81.2 fL (80.0-100.0); MONOCYTES # (AUTO) 0.5 x10^3/uL (0.3-0.8); MONOCYTES % (AUTO) 4.8 % (0.0-13.0); NEUTROPHILS # (AUTO) 7.5 x10^3/uL (2.2-4.8); NEUTROPHILS % (AUTO) 66.4 % (42.0-75.0); PLATELET COUNT 226 X10^3/uL (150.0-450.0); RED BLOOD COUNT 5.03 X10^6/uL (3.5-5.4); RED CELL DISTRIBUTION WIDTH 13.3 % (11.6-16.5); WHITE BLOOD COUNT 11.4 X10^3/uL (3.6-10.0)
[2018-03-01 18:12] LABS: BLOOD ALCOHOL < 3 mg/dL (0-19.9)
[2018-03-01 18:14] LABS: ALANINE AMINOTRANSFERASE 25 Units/L (12-78); ALBUMIN 3.6 g/dL (3.4-5.0); ALKALINE PHOSPHATASE 174 Units/L (46-116); ASPARTATE AMINO TRANSFERASE 17 Units/L (15-37); BLOOD UREA NITROGEN 6 mg/dL (7-18); CALCIUM 9.3 mg/dL (8.5-10.1); CARBON DIOXIDE 29.2 mmol/L (21-32); CHLORIDE 101 mmol/L (98-107); CREATININE 0.64 mg/dL (0.55-1.02); SODIUM 139 mmol/L (136-145); TOTAL PROTEIN 7.5 g/dL (6.4-8.2); eGFR BLACK RACES > 60 (>60); eGFR NON BLACK RACES > 60 (>60)
[2018-03-01] MEDS ORDERED: POTASSIUM CHL 60 MEQ/NS 0.45% 500 ML IV PRN (18:20)
[2018-03-01] MEDS ORDERED: MAGNESIUM SULFATE 1 GM/100 mL PREMIX 1 GM/100 ML BAG IV PRN (18:20)
[2018-03-01] MEDS ORDERED: K-LYTE EFFERVESCENT PO PRN (18:20)
[2018-03-01] MEDS ORDERED: POTASSIUM CHL 40 MEQ/NS 0.45% 500 ML IV PRN (18:20)
[2018-03-01] MEDS ORDERED: POTASSIUM CHLORIDE LIQ 20 MEQ UDC PO PRN (18:20)
[2018-03-01] MEDS ORDERED: K-RIDER 10 MEQ/NS 100 ML 10 MEQ/100 ML BAG IV PRN (18:20)
[2018-03-01] MEDS ORDERED: TYLENOL 325 MG TAB PO PRN (19:23)
[2018-03-01] MEDS ORDERED: NS 500 ML IV 500 ML IV SCH (21:00)
[2018-03-01 21:02] LABS: BILIRUBIN,URINE NEGATIVE (NEGATIVE); BLOOD/HEMOGLOBIN,URINE 1+ (NEGATIVE); GLUCOSE, URINE NEGATIVE (NEGATIVE); KETONES,URINE NEGATIVE (NEGATIVE); LEUKOCYTE ESTERASE ,URINE NEGATIVE (NEGATIVE); NITRITES,URINE NEGATIVE (NEGATIVE); PH,URINE 6.5 (5.0 - 8.0); PROTEIN,URINE NEGATIVE (NEGATIVE); UROBILINOGEN,URINE 1+ (NORMAL)
[2018-03-01 21:11] LABS: APPEARANCE,URINE CLEAR (CLEAR); BACTERIA,URINE TRACE /HPF (NEGATIVE); COLOR,URINE YELLOW (YELLOW); RBC,URINE 0-2 /HPF (NONE SEEN); SQUAMOUS EPITHELIAL CELL,UR MODERATE /HPF (NEGATIVE)
[2018-03-01] MEDS: NICOTINE PATCH TD SCH (21:13)
[2018-03-02 06:16] LABS: BASOPHILS # (AUTO) 0.1 X10^3/uL (0.0-0.1); BASOPHILS % (AUTO) 0.8 % (0.2-1.0); EOSINOPHILS # (AUTO) 0.2 x10^3/uL (0.0-0.2); HEMATOCRIT 34.9 % (36.0-47.0); LYMPHOCYTES # (AUTO) 2.9 X10^3/uL (1.3-2.9); LYMPHOCYTES % (AUTO) 39.7 % (21.0-51.0); MEAN CORPUSCULAR HGB CONC 34.2 g/dL (33.0-35.0); MEAN CORPUSCULAR VOLUME 81.8 fL (80.0-100.0); MEAN PLATELET VOLUME 10.8 fL (7.4-11.0); MONOCYTES # (AUTO) 0.4 x10^3/uL (0.3-0.8); NEUTROPHILS # (AUTO) 3.7 x10^3/uL (2.2-4.8); NEUTROPHILS % (AUTO) 50.5 % (42.0-75.0); PLATELET COUNT 180 X10^3/uL (150.0-450.0); RED BLOOD COUNT 4.27 X10^6/uL (3.5-5.4); RED CELL DISTRIBUTION WIDTH 13.3 % (11.6-16.5); WHITE BLOOD COUNT 7.3 X10^3/uL (3.6-10.0)
[2018-03-02 06:45] LABS: ALANINE AMINOTRANSFERASE 21 Units/L (12-78); ALBUMIN 2.9 g/dL (3.4-5.0); ALKALINE PHOSPHATASE 137 Units/L (46-116); ASPARTATE AMINO TRANSFERASE 16 Units/L (15-37); BLOOD UREA NITROGEN 6 mg/dL (7-18); CALCIUM 8.3 mg/dL (8.5-10.1); CARBON DIOXIDE 29.1 mmol/L (21-32); CHLORIDE 105 mmol/L (98-107); COR CA(FOR HYPOALB) 9.2 mg/dL (8.5-10.1); CREATININE 0.54 mg/dL (0.55-1.02); SODIUM 140 mmol/L (136-145); TOTAL PROTEIN 6.1 g/dL (6.4-8.2); eGFR BLACK RACES > 60 (>60); eGFR NON BLACK RACES > 60 (>60)
[2018-03-02] MEDS ORDERED: TORADOL 30 MG VIAL IVP ONE (08:29)
[2018-03-02] MEDS ORDERED: NORCO 10/325 TAB PO ONE (08:29)
[2018-03-02] MEDS ORDERED: CHECK PATCH XX SCH (09:00)
[2018-03-02] MEDS: NICOTINE PATCH TD SCH (09:36)
[2018-03-02 12:24] VITALS: BP 103/64
[2018-03-02] MEDS ORDERED: ZOFRAN INJ 4 MG VIAL IVP PRN (13:53)
== END 2018-03-02 15:30 ==
LOC: MED/SURG 15:29
PROVIDERS: ADMIT Internal Medicine; ATTEND Internal Medicine
DX: R44.0 Auditory hallucinations (principal); F41.8 Other specified anxiety disorders; F43.0 Acute stress reaction; K21.9 Gastro-esophageal reflux disease without esophagitis; Z86.69 Personal history of other diseases of the nervous system and sense organs
CPT/HCPCS: 36415; 80053; 80307; 81001; 83735; 85025; A4222; G0378; G0434; G6039; G6040; J1885; J2405

== ENCOUNTER 2018-03-26 20:12 | Emergency (ER) | payer OTHER ==
[2018-03-26 20:21] VITALS: BP 105/56; BMI 25.4
--- NOTE | 2018-03-26 21:51 | DR.GENAD ---
HPI - PCP Primary Care Physician: - HPI Comment HPI Comment: PATIENT SAID SHE HAD ADHESION REMOVAL SURGERY 5 DAYS AGO. NOW WOUND IS OPEN BUT NOT DRAINING. PATIENT IS HAVING SEVERE ABDOMINAL PAIN. WOUND IS OPEN AT S/C LEVEL. PERITONEUM IS NOT VISIBLE. DRY DRAINAGE PRESENT NO ACTIVE WET DRAINAGE PRESENT. DENIEAS FEVER. - Complaint/Symptoms Chief Complaint Doctors Comments: PAIN AT INCISION SITE AT LEVEL OF UMBILICUS. Chief Complaint:: pain at incision site. - Nurses notes reviewed Nurses Notes Review: Yes - Source History Provided: Patient - Mode of Arrival Mode of Arrival: Ambulatory - Timing Onset of Chief Complaint: 03/26/18 Came on: Suddenly - Duration Duration: Constant Duration: Days - Severity Severity: Moderate PMH - PMH Past Medical History: Yes Past Medical History: Asthma, Migraines, GERD, Headaches Past Surgical History: Yes Surgical History: Abdominal Surgery, Cholecystectomy, Hysterectomy, Other Past Surgical History Comment: reconstructive surgery on ears and nose - Family History History of Family Medical Conditions: Yes Family Medical History: Diabetes Mellitus, Cancer, [place], Hypertension - Social History Does patient currently use any type of tobacco product: Yes Have you used tobacco products in the last 12 months: Yes Type of Tobacco Use: Cigarettes Does any household member use tobacco: No Alcohol Use: None Do you use any recreational Drugs:: No Lives With: Family Lives Where: Home - infectious screening In the last 2 months have you had wt loss of >10#?: NO Have you had fever, night sweats or hemotysis?: No Have you traveled outside the country in the last 6 months?: No Isolation: Standard ROS - Review of Systems Constitutional: Weakness, Fatigue. negative: Chills, Fever Eyes: No Symptoms Reported. negative: Eye Pain, Discharge ENTM: No Symptoms Reported. negative: Ear Pain, Nose Discharge, Nose Congestion , Throat Pain Respiratoy: Non-Productive Cough. negative: Productive Cough, Short of Breath, Wheezing, Hemoptysis Cardiovascular: No Symptoms Reported Gastrointestinal/Abdominal: Abdominal Pain, Nausea, Vomiting. negative: Constipation, Diarrhea Genitourinary: No Symptoms Reported. negative: Dysuria, Frequency, Hematuria Neurological: Weakness. negative: Headache, Dizziness Musculoskeletal: No Symptoms Reported Integumentary: Wound (UMBILIVAL WOUND THAT HAS OPEN UP.) Hematologic/Lymphatic: No Symptoms Reported Endocrine: No Symptoms Reported All Other Systems: Reviewed and Negative PE - Vital Signs Vitals: Temperature 98.1 F Pulse Rate 95 Respiratory Rate 16 Blood Pressure [Right Arm] 98/65 Blood Pressure [Left Arm] 103/64 Blood Pressure [Right Arm] 95/54 Blood Pressure 105/56 O2 Sat by Pulse Oximetry 99 - General Limitations: No Limitations General Appearance: Alert - Head Head Exam: Normal Inspection - Eyes Eye exam: Normal Appearance - ENT ENT Exam: Normal External Ear Exam External Ear Exam: Normal External Inspection TM/Canal Exam: Bilateral Normal Nose Exam: Normal Nose Exam Mouth Exam: Normal Inspection Throat Exam: Normal Inspection - Neck Neck Exam: Trachea Midline - Chest Chest Inspection: Symmetric Chest Wall Rise - Respiratory Respiratory Exam: Normal Lung Sounds Bilat Respiratory Exam: Bilateral Clear to Auscultation - Cardiovascular Cardiovascular Exam: Regular Rate, Normal Rhythm, Normal Heart Sounds - Abdominal Exam Abdominal Exam: Normal Bowel Sounds, Soft, Tenderness (DIFFUSE.) Abdominal Tenderness: Diffuse, Moderate - Extremities Extremities Exam: Normal Inspection - Back Back Exam: Normal Inspection - Neurologic Neurological Exam: Alert, Oriented X3 - Psychiatric Psychiatric Exam: Anxious - Skin Skin Exam: Erythema MDM - Additional Information Additional Information Obtained From: Family - Differential Diagnosis Differential Diagnosis: WOUND DIHESCENE, ABDOMINAL PAIN. Course - Treatment Treatment: SEE ORDERS. - Education/Counseling Education/Counseling: Patient, Family, Education Educated On: Diagnosis, Needs for Follow Up ROR - Labs Reviewed Laboratory Results Reviewed?: Yes Result Diagrams: 03/26/18 22:20 03/26/18 22:20 Laboratory: WBC 13.2 X10^3/uL (3.6-10.0) H 03/26/18 22:20 RBC 4.63 X10^6/uL (3.5-5.4) 03/26/18 22:20 Hgb 12.9 g/dL (12.0-16.0) 03/26/18 22:20 Hct 38.4 % (36.0-47.0) 03/26/18 22:20 MCV 82.8 fL (80.0-100.0) 03/26/18 22:20 MCH 27.8 pg (27.0-34.0) 03/26/18 22:20 MCHC 33.5 g/dL (33.0-35.0) 03/26/18 22:20 RDW 13.4 % (11.6-16.5) 03/26/18 22:20 Plt Count 222 X10^3/uL (150.0-450.0) 03/26/18 22:20 MPV 9.7 fL (7.4-11.0) 03/26/18 22:20 Neut % (Auto) 61.2 % (42.0-75.0) 03/26/18 22:20 Lymph % (Auto) 25.5 % (21.0-51.0) 03/26/18 22:20 [place] % (Auto) 8.2 % (0.0-13.0) 03/26/18 22:20 Eos % (Auto) 4.6 % (0.9-2.9) H 03/26/18 22:20 Baso % (Auto) 0.5 % (0.2-1.0) 03/26/18 22:20 Neut # (Auto) 8.1 x10^3/uL (2.2-4.8) H 03/26/18 22:20 Lymph # (Auto) 3.4 X10^3/uL (1.3-2.9) H 03/26/18 22:20 [place] # (Auto) 1.1 x10^3/uL (0.3-0.8) H 03/26/18 22:20 Eos # (Auto) 0.6 x10^3/uL (0.0-0.2) H 03/26/18 22:20 Baso # (Auto) 0.1 X10^3/uL (0.0-0.1) 03/26/18 22:20 Absolute Nucleated RBC 0.1 /100WBC 03/26/18 22:20 Sodium 138 mmol/L (136-145) 03/26/18 22:20 Corrected Sodium TNP 03/26/18 22:20 Potassium 3.5 mmol/L (3.5-5.1) 03/26/18 22:20 Chloride 102 mmol/L (98-107) 03/26/18 22:20 Carbon Dioxide 30.5 mmol/L (21-32) 03/26/18 22:20 BUN 1 mg/dL (7-18) L 03/26/18 22:20 Creatinine 0.67 mg/dL (0.55-1.02) 03/26/18 22:20 Est GFR (MDRD) Af Amer > 60 (>60) 03/26/18 22:20 Est GFR (MDRD) Non-Af > 60 (>60) 03/26/18 22:20 Glucose 106 mg/dL (65-99) H 03/26/18 22:20 Calcium 8.4 mg/dL (8.5-10.1) L 03/26/18 22:20 Corrected Calcium 9.0 mg/dL (8.5-10.1) 03/26/18 22:20 Total Bilirubin 0.10 mg/dL (0.2-1.0) L 03/26/18 22:20 AST 16 Units/L (15-37) 03/26/18 22:20 ALT 16 Units/L (12-78) 03/26/18 22:20 Alkaline Phosphatase 131 Units/L (46-116) H 03/26/18 22:20 Total Protein 6.7 g/dL (6.4-8.2) 03/26/18 22:20 Albumin 3.3 g/dL (3.4-5.0) L 03/26/18 22:20 Globulin 3.4 g/dL (2.5-4.5) 03/26/18 22:20 Albumin/Globulin Ratio 1.0 Ratio (1.1-2.1) L 03/26/18 22:20 Specimen Type Clean catch urine 03/26/18 22:00 Urine Color Yellow (YELLOW) 03/26/18 22:00 Urine Appearance Clear (CLEAR) 03/26/18 22:00 Urine pH 5.0 (5.0 - 8.0) 03/26/18 22:00 Ur Specific [place] 1.010 (1.000-1.030) 03/26/18 22:00 Urine Protein Negative (NEGATIVE) 03/26/18 22:00 Urine Glucose (UA) Negative (NEGATIVE) 03/26/18 22:00 Urine Ketones Negative (NEGATIVE) 03/26/18 22:00 Urine Occult Blood 1+ (NEGATIVE) 03/26/18 22:00 Urine Nitrite Negative (NEGATIVE) 03/26/18 22:00 Urine Bilirubin Negative (NEGATIVE) 03/26/18 22:00 Urine Urobilinogen Normal (NORMAL) 03/26/18 22:00 Ur Leukocyte Esterase Negative (NEGATIVE) 03/26/18 22:00 Urine RBC 0-2 /HPF (NONE SEEN) 03/26/18 22:00 Urine WBC 0-2 /HPF (NONE SEEN) 03/26/18 22:00 Ur Squamous Epith Cells Rare /HPF (NEGATIVE) 03/26/18 22:00 Urine Bacteria Negative /HPF (NEGATIVE) 03/26/18 22:00 Ur Culture Indicated? No/not indicated 03/26/18 22:00 - XRAY XRAY Interpreted by: Radiologist XRAY Findings: REPORT DISCUSS WITH PATIENT. - Diagnosis Discharge Problem: Wound dehiscence Abdominal pain Qualifiers: Abdominal location: generalized Qualified Code(s): R10.84 - Generalized abdominal pain - Discharge Plan Disposition: 01 HOME, SELF-CARE Condition: Stable - Follow ups/Referrals Follow ups/Referrals: BUDDY CORDERO [Primary Care Provider] - 3 days NANCY GERARDO [REFERRING] - 03/27/18 - Instructions Instructions: Wound Dehiscence, [id number], Abdominal Pain, Adult, Easy-to- Read Additional Instructions: RETURN TO ED IF WORSE.
[2018-03-26] MEDS ORDERED: MORPHINE SULFATE INJ 4 MG IM ONE (22:07)
[2018-03-26] MEDS ORDERED: ZOFRAN INJ 4 MG VIAL IM ONE (22:07)
[2018-03-26] MEDS ORDERED: ZOFRAN INJ 4 MG VIAL ONE (22:14)
[2018-03-26] MEDS ORDERED: MORPHINE SULFATE INJ 4 MG ONE (22:14)
[2018-03-26 22:44] LABS: BASOPHILS # (AUTO) 0.1 X10^3/uL (0.0-0.1); BASOPHILS % (AUTO) 0.5 % (0.2-1.0); EOSINOPHILS # (AUTO) 0.6 x10^3/uL (0.0-0.2); EOSINOPHILS % (AUTO) 4.6 % (0.9-2.9); HEMATOCRIT 38.4 % (36.0-47.0); HEMOGLOBIN 12.9 g/dL (12.0-16.0); LYMPHOCYTES # (AUTO) 3.4 X10^3/uL (1.3-2.9); LYMPHOCYTES % (AUTO) 25.5 % (21.0-51.0); MEAN CORPUSCULAR HEMOGLOBIN 27.8 pg (27.0-34.0); MEAN CORPUSCULAR HGB CONC 33.5 g/dL (33.0-35.0); MEAN CORPUSCULAR VOLUME 82.8 fL (80.0-100.0); MEAN PLATELET VOLUME 9.7 fL (7.4-11.0); MONOCYTES # (AUTO) 1.1 x10^3/uL (0.3-0.8); MONOCYTES % (AUTO) 8.2 % (0.0-13.0); NEUTROPHILS # (AUTO) 8.1 x10^3/uL (2.2-4.8); NEUTROPHILS % (AUTO) 61.2 % (42.0-75.0); PLATELET COUNT 222 X10^3/uL (150.0-450.0); RED BLOOD COUNT 4.63 X10^6/uL (3.5-5.4); RED CELL DISTRIBUTION WIDTH 13.4 % (11.6-16.5); WHITE BLOOD COUNT 13.2 X10^3/uL (3.6-10.0)
[2018-03-26 22:44] LABS: BILIRUBIN,URINE NEGATIVE (NEGATIVE); BLOOD/HEMOGLOBIN,URINE 1+ (NEGATIVE); GLUCOSE, URINE NEGATIVE (NEGATIVE); KETONES,URINE NEGATIVE (NEGATIVE); LEUKOCYTE ESTERASE ,URINE NEGATIVE (NEGATIVE); NITRITES,URINE NEGATIVE (NEGATIVE); PROTEIN,URINE NEGATIVE (NEGATIVE); UROBILINOGEN,URINE NORMAL (NORMAL)
[2018-03-26 22:49] LABS: ALANINE AMINOTRANSFERASE 16 Units/L (12-78); ALBUMIN 3.3 g/dL (3.4-5.0); ALKALINE PHOSPHATASE 131 Units/L (46-116); ASPARTATE AMINO TRANSFERASE 16 Units/L (15-37); BLOOD UREA NITROGEN 1 mg/dL (7-18); CALCIUM 8.4 mg/dL (8.5-10.1); CARBON DIOXIDE 30.5 mmol/L (21-32); CHLORIDE 102 mmol/L (98-107); CREATININE 0.67 mg/dL (0.55-1.02); SODIUM 138 mmol/L (136-145); TOTAL PROTEIN 6.7 g/dL (6.4-8.2); eGFR BLACK RACES > 60 (>60); eGFR NON BLACK RACES > 60 (>60)
--- NOTE | 2018-03-26 22:49 | CT ---
CT abdomen and pelvis without contrast Indication: Recent abdominal surgery with concern for wound dehiscence Comparison: 07/13/2017 Technique: Multiple axial images of the abdomen and pelvis were obtained from the lung bases to the pubic symphy sis without the administration of IV contrast. Findings: No focal airspace consolidation identified within the lung bases with mild scarring within both lower lobes. No focal hepatic lesion identified. Small amount of gas is noted anterior to the liver. Previ ous cholecystectomy is noted. Bile ducts are normal in caliber. The spleen, pancreas and adrenal glan ds are normal. Neither kidney demonstrates evidence of nephrolithiasis, hydronephrosis or mass. Upper and lower GI tract are unremarkable. Urinary bladder is normal. No pelvic or adnexal mass. Appendix is normal. Mild inflammatory changes noted within the left lower quadrant extending to the subcutaneo us tissues of the left lower abdomen. There is also small amount gas within the lower anterior abdomi nal wall and stranding. No localizing fluid collection identified. Small fat containing paraumbilical hernia. Gas within the right flank subcutaneous tissues likely represents previous injection site. Impression: 1.Mild stranding within the left lower abdominal wall and lower midline abdominal wall consistent wit h recent surgery. No localizing fluid collection is identified. Of note there is a small amount of ga s anterior to the liver which is indeterminate, correlation with surgical history is needed for expec cherise free air within the peritoneal cavity. 2. Refer to above for other incidental, chronic findings. IMPRESSION: Reported By:
[2018-03-26 22:53] LABS: APPEARANCE,URINE CLEAR (CLEAR); BACTERIA,URINE NEGATIVE /HPF (NEGATIVE); COLOR,URINE YELLOW (YELLOW); RBC,URINE 0-2 /HPF (NONE SEEN); SQUAMOUS EPITHELIAL CELL,UR RARE /HPF (NEGATIVE)
== END 2018-03-26 23:07 | disposition home or self-care (01) ==
LOC: ER 20:12
DX: R10.84 Generalized abdominal pain (principal); T81.31XA Disruption of external operation (surgical) wound, not elsewhere classified, initial encounter
CPT/HCPCS: 36415; 74176; 80053; 81001; 85025; 96372; 99283; 99284; J2270; J2405

== ENCOUNTER 2019-12-13 08:04 | Inpatient (IN) ==
[2019-12-13 08:10] VITALS: BMI 28.0
[2019-12-13 08:36] LABS: BILIRUBIN,URINE NEGATIVE (NEGATIVE); BLOOD/HEMOGLOBIN,URINE 4+ (NEGATIVE); GLUCOSE, URINE NEGATIVE (NEGATIVE); KETONES,URINE NEGATIVE (NEGATIVE); LEUKOCYTE ESTERASE ,URINE 2+ (NEGATIVE); NITRITES,URINE POSITIVE (NEGATIVE); PROTEIN,URINE 1+ (NEGATIVE); UROBILINOGEN,URINE NORMAL (NORMAL)
--- NOTE | 2019-12-13 08:40 | DR.FEVERAD ---
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 Complaints/Symptoms Chief Complaint:: PT WENT TO HAVE TUBES PUT IN HER EARS PT STATES AT OFFICE HER TEMP WAS 103.0, PT C/O COUGH AND SHE IS ON AMOXICILLIN FOR BRONCHITIS, ,BR Nurses notes reviewed Nurses Notes Review: Yes Source History Provided: Patient Mode of Arrival Mode of Arrival: Ambulatory Timing Onset of Chief Complaint: 12/13/19 Came on: Gradually Duration Duration: Constant Duration: Days Severity Fever Severity/Quality: greater than 100.5 F Context Recent: None Symptoms: Fever, Chills, Cough, Nasal symptoms and Sore throat Modifying factors Modifying factors: Tylenol and Ibuprofen Associated signs and symptoms Associated signs and symptoms: Weakness, Myalgia, Headache and Nausea PMH PMH Past Medical History: Yes Past Medical History: Anxiety, Asthma and Migraines Past Medical History Comment: BI-POLAR Past Surgical History: Yes Surgical History: Cholecystectomy and Hysterectomy Past Surgical History Comment: EARS, RECONSTRUCTED , Family History History of Family Medical Conditions: Yes Family Medical History: Diabetes Mellitus, Cancer, [place] and Hypertension Social History Does patient currently use any type of tobacco product: Yes Have you used tobacco products in the last 12 months: Yes Type of Tobacco Use: Cigarettes How many years tobacco product used: 20 Does any household member use tobacco: No Alcohol Use: None Do you use any recreational Drugs:: No Lives With: Family Lives Where: Home infectious screening In the last 2 months have you had wt loss of >10#?: NO Have you had fever, night sweats or hemotysis?: No Have you traveled outside the country in the last 6 months?: No Isolation: Standard ROS Review of Systems Constitutional: See HPI, Fever, Weakness, Fatigue and Loss of Appetite Eyes: No Symptoms Reported and See HPI ENTM: See HPI, Nose Discharge, Nose Congestion and Throat Pain; negative Ear Pain Respiratoy: See HPI and Productive Cough; negative Short of Breath and Wheezing Cardiovascular: See HPI and Chest Pain; negative Edema and Palpitations Gastrointestinal/Abdominal: See HPI, Nausea and Vomiting Genitourinary: No Symptoms Reported and See HPI; negative Dysuria, Frequency and Hematuria Neurological: Headache and Weakness; negative Dizziness Musculoskeletal: See HPI, Back Pain and Muscle Pain Integumentary: See HPI and Dryness; negative Change in Color, Rash and Juandice Hematologic/Lymphatic: No Symptoms Reported and See HPI; negative Easy Bruising and Swollen Glands Endocrine: See HPI and Decreased Appetite; negative Increased Thirst and Increased Urine Psychiatric: No Symptoms Reported and See HPI All Other Systems: Reviewed and Negative PE Vital Signs Vitals: Temperature 103.1 F Pulse Rate 119 Respiratory Rate 18 Blood Pressure [Right Arm] 98/65 Blood Pressure [Left Arm] 102/71 Blood Pressure 99/50 O2 Sat by Pulse Oximetry 94 General Limitations: No Limitations General Appearance: Alert and In No Apparent Distress Head Head Exam: Normal Inspection and Atraumatic Eyes Eye exam: Normal Appearance and PERRL; negative Scleral Icterus and Conjunctival Injection ENT ENT Exam: Normal External Ear Exam; negative Normal Oropharynx and TM's Normal Bilaterally External Ear Exam: Normal External Inspection; negative Auricular Hematoma, Auricular Trauma and Pain with Movement TM/Canal Exam: Bilateral: Normal Nose Exam: Normal Nose Exam; negative Sinus Tenderness and Nasal Deviation Mouth Exam: Normal Inspection; negative Lip Swelling and Tongue Swelling Teeth Exam: Dental Caries; negative Dental Tenderness # and Gingival Swelling Throat Exam: Tonsillar Erythema; negative Tonsillomegaly and Tonsillar Exudate Neck Neck Exam: Normal Inspection and Trachea Midline; negative Tenderness and Lymphadenopathy Respiratory Respiratory Exam: Normal Lung Sounds Bilat; negative Accessory Muscle Use, Chest Wall Tenderness and Respiratory Distress Respiratory Exam: Bilateral: Rhonchi and Lower: Rhonchi Cardiovascular Cardiovascular Exam: Regular Rate, Normal Rhythm and Normal Heart Sounds; negative Systolic Murmur and Diastolic Murmur Abdominal Exam Abdominal Exam: Normal Inspection, Normal Bowel Sounds and Soft; negative Tenderness Extremities Extremities Exam: Normal Inspection and Normal Capillary Refill; negative Tenderness, Edema and Calf Tenderness Back Back Exam: Normal Inspection; negative Tenderness, (R) CVA Tenderness and (L) CVA Tenderness Neurologic Neurological Exam: Alert, Oriented X3 and CN II-XII Intact; negative Motor Sensory Deficit Psychiatric Psychiatric Exam: Normal Affect and Normal Mood Skin Skin Exam: Dry MDM Differential Diagnosis Differential Diagnosis: Influenza, Pneumonia (BRONCHITIS, SINUSITIS), Pyelonephritis, UTI and Viral syndrome COURSE Treatment Treatment: SEE ORDERS. NS 1L IV BOLUS, ZOFRAN 4MG IV AND ROCEPHIN 1GM IVPB. Education/Counseling Education/Counseling: Patient Educated On: Diagnosis ROR Labs Reviewed Laboratory Results Reviewed?: Yes Result Diagrams: 12/13/19 08:55 12/13/19 08:55 Laboratory: WBC 8.5 X10^3/uL (3.6-10.0) 12/13/19 08:55 RBC 4.77 X10^6/uL (3.5-5.4) 12/13/19 08:55 Hgb 12.9 g/dL (12.0-16.0) 12/13/19 08:55 Hct 38.7 % (36.0-47.0) 12/13/19 08:55 MCV 81.2 fL (80.0-100.0) 12/13/19 08:55 MCH 27.0 pg (27.0-34.0) 12/13/19 08:55 MCHC 33.3 g/dL (33.0-35.0) 12/13/19 08:55 RDW 13.7 % (11.6-16.5) 12/13/19 08:55 Plt Count 170 X10^3/uL (150.0-450.0) 12/13/19 08:55 MPV 10.3 fL (7.4-11.0) 12/13/19 08:55 Neut % (Auto) 78.2 % (42.0-75.0) H 12/13/19 08:55 Lymph % (Auto) 11.6 % (21.0-51.0) L 12/13/19 08:55 [place] % (Auto) 8.9 % (0.0-13.0) 12/13/19 08:55 Eos % (Auto) 0.6 % (0.9-2.9) L 12/13/19 08:55 Baso % (Auto) 0.7 % (0.2-1.0) 12/13/19 08:55 Neut # (Auto) 6.7 x10^3/uL (2.2-4.8) H 12/13/19 08:55 Lymph # (Auto) 1.0 X10^3/uL (1.3-2.9) L 12/13/19 08:55 [place] # (Auto) 0.8 x10^3/uL (0.3-0.8) 12/13/19 08:55 Eos # (Auto) 0.1 x10^3/uL (0.0-0.2) 12/13/19 08:55 Baso # (Auto) 0.1 X10^3/uL (0.0-0.1) 12/13/19 08:55 Absolute Nucleated RBC 0.1 /100WBC 12/13/19 08:55 Sodium 137 mmol/L (136-145) 12/13/19 08:55 Corrected Sodium TNP 12/13/19 08:55 Potassium 3.9 mmol/L (3.5-5.1) 12/13/19 08:55 Chloride 102 mmol/L (98-107) 12/13/19 08:55 Carbon Dioxide 27.7 mmol/L (21-32) 12/13/19 08:55 BUN 3 mg/dL (7-18) L 12/13/19 08:55 Creatinine 0.81 mg/dL (0.55-1.02) 12/13/19 08:55 Est GFR (MDRD) Af Amer > 60 (>60) 12/13/19 08:55 Est GFR (MDRD) Non-Af > 60 (>60) 12/13/19 08:55 Glucose 95 mg/dL (65-99) 12/13/19 08:55 Calcium 8.3 mg/dL (8.5-10.1) L 12/13/19 08:55 Corrected Calcium TNP 12/13/19 08:55 Total Bilirubin 0.20 mg/dL (0.2-1.0) 12/13/19 08:55 AST 34 Units/L (15-37) 12/13/19 08:55 ALT 21 Units/L (12-78) 12/13/19 08:55 Alkaline Phosphatase 126 Units/L (46-116) H 12/13/19 08:55 Total Protein 6.8 g/dL (6.4-8.2) 12/13/19 08:55 Albumin 3.4 g/dL (3.4-5.0) 12/13/19 08:55 Globulin 3.4 g/dL (2.5-4.5) 12/13/19 08:55 Albumin/Globulin Ratio 1.0 Ratio (1.1-2.1) L 12/13/19 08:55 Specimen Type Clean catch urine 12/13/19 08:25 Urine Color Yellow (YELLOW) 12/13/19 08:25 Urine Appearance Cloudy (CLEAR) 12/13/19 08:25 Urine pH 5.0 (5.0 - 8.0) 12/13/19 08:25 Ur Specific [place] 1.015 (1.000-1.030) 12/13/19 08:25 Urine Protein 1+ (NEGATIVE) 12/13/19 08:25 Urine Glucose (UA) Negative (NEGATIVE) 12/13/19 08:25 Urine Ketones Negative (NEGATIVE) 12/13/19 08:25 Urine Occult Blood 4+ (NEGATIVE) 12/13/19 08:25 Urine Nitrite Positive (NEGATIVE) 12/13/19 08:25 Urine Bilirubin Negative (NEGATIVE) 12/13/19 08:25 Urine Urobilinogen Normal (NORMAL) 12/13/19 08:25 Ur Leukocyte Esterase 2+ (NEGATIVE) 12/13/19 08:25 Urine RBC 5-10 /HPF (0-3) A 12/13/19 08:25 Urine WBC 20-30 /HPF (0-5) A 12/13/19 08:25 Ur Squamous Epith Cells Few /HPF (NEGATIVE) 12/13/19 08:25 Urine Bacteria 4+ /HPF (NEGATIVE) 12/13/19 08:25 Ur Culture Indicated? Yes/culture set up 12/13/19 08:25 Influenza Type A (PCR) Positive (NEGATIVE) A 12/13/19 08:25 Influenza Type B (PCR) Negative (NEGATIVE) 12/13/19 08:25 S. pyogenes (TEM-PCR) Not detected (NOT DETECT) 12/13/19 08:25 XRAY XRAY Interpreted by: Radiologist XRAY Findings: REPORT NOTED AND DISCUSSED WITH PATIENT. Opioid Opioid Risk Tool Age ([place] box if 16-45): Yes History of Preadolescent Sexual Abuse: No Total: 1 Total Score Risk Category: Low Risk Copyright: Rich BLANCHARD predicting aberrant behaviors Diagnosis Discharge Problem: (Ruled Out): Neck pain, chronic Instructions Forms: Excuse From Work Patient Portal
[2019-12-13 08:43] LABS: APPEARANCE,URINE CLOUDY (CLEAR); BACTERIA,URINE 4+ /HPF (NEGATIVE); COLOR,URINE YELLOW (YELLOW); SQUAMOUS EPITHELIAL CELL,UR FEW /HPF (NEGATIVE)
[2019-12-13] MEDS ORDERED: ZOFRAN INJ 4 MG VIAL IVP ONE (08:52)
[2019-12-13] MEDS ORDERED: NS 1000 ML 1,000 ML IV ONE (08:52)
[2019-12-13] MEDS ORDERED: ROCEPHIN VIAL 1 GRAM 1 G in NS 100 ML IV + SPIKE MINIBAG* 100 ML IV ONE (08:53)
[2019-12-13] MEDS ORDERED: ZOFRAN INJ 4 MG VIAL ONE (08:58)
[2019-12-13] MEDS ORDERED: NS 1000 ML 1,000 ML ONE ×2 (08:58→11:44)
[2019-12-13] MEDS ORDERED: ROCEPHIN VIAL 1 GRAM ONE (08:59)
[2019-12-13] MEDS ORDERED: NS 100 ML IV + SPIKE MINIBAG* 100 ML IV ONE (08:59)
--- NOTE | 2019-12-13 08:59 | RAD ---
HISTORYFEVER, COUGHSTUDYAP chestCOMPARISONFebruary 2019FINDINGSThe lungs are clear and the heart and mediastinum are unremarkable. There is no edema or effusion. No bony abnormality is demonstrated.IMPRESSIONNo evidence for active cardiopulmonary diseaseElectronically signed by: JASMIN COATES (Dec 13, 2019 08:58:10)
[2019-12-13 09:03] LABS: STREP A BY PCR NOT DETECTED (NOT DETECT)
[2019-12-13 09:25] LABS: BASOPHILS # (AUTO) 0.1 X10^3/uL (0.0-0.1); BASOPHILS % (AUTO) 0.7 % (0.2-1.0); EOSINOPHILS # (AUTO) 0.1 x10^3/uL (0.0-0.2); EOSINOPHILS % (AUTO) 0.6 % (0.9-2.9); HEMATOCRIT 38.7 % (36.0-47.0); HEMOGLOBIN 12.9 g/dL (12.0-16.0); LYMPHOCYTES % (AUTO) 11.6 % (21.0-51.0); MEAN CORPUSCULAR HGB CONC 33.3 g/dL (33.0-35.0); MEAN CORPUSCULAR VOLUME 81.2 fL (80.0-100.0); MEAN PLATELET VOLUME 10.3 fL (7.4-11.0); MONOCYTES # (AUTO) 0.8 x10^3/uL (0.3-0.8); MONOCYTES % (AUTO) 8.9 % (0.0-13.0); NEUTROPHILS # (AUTO) 6.7 x10^3/uL (2.2-4.8); NEUTROPHILS % (AUTO) 78.2 % (42.0-75.0); PLATELET COUNT 170 X10^3/uL (150.0-450.0); RED BLOOD COUNT 4.77 X10^6/uL (3.5-5.4); RED CELL DISTRIBUTION WIDTH 13.7 % (11.6-16.5); WHITE BLOOD COUNT 8.5 X10^3/uL (3.6-10.0)
[2019-12-13 09:37] LABS: ALANINE AMINOTRANSFERASE 21 Units/L (12-78); ALBUMIN 3.4 g/dL (3.4-5.0); ALKALINE PHOSPHATASE 126 Units/L (46-116); ASPARTATE AMINO TRANSFERASE 34 Units/L (15-37); BLOOD UREA NITROGEN 3 mg/dL (7-18); CALCIUM 8.3 mg/dL (8.5-10.1); CARBON DIOXIDE 27.7 mmol/L (21-32); CHLORIDE 102 mmol/L (98-107); CREATININE 0.81 mg/dL (0.55-1.02); SODIUM 137 mmol/L (136-145); TOTAL PROTEIN 6.8 g/dL (6.4-8.2); eGFR NON BLACK RACES > 60 (>60)
[2019-12-13] MEDS ORDERED: TORADOL 30 MG VIAL ONE (10:07)
[2019-12-13] MEDS ORDERED: TORADOL 30 MG VIAL IVP ONE (10:09)
[2019-12-13] MEDS ORDERED: PEPCID 20 MG IV PREMIX* 20 MG/50 ML BAG IV ONE ×2 (10:09→10:40)
[2019-12-13] MEDS ORDERED: NS 1000 ML 1,000 ML IV SCH (12:00)
[2019-12-13] MEDS: NS 1/2 1000 ML IV 1,000 ML IV SCH ×2 (13:22→22:18)
[2019-12-13] MEDS: VSL#3 PO SCH (13:39)
[2019-12-13] MEDS: ROBITUSSIN DM PO SCH ×3 (13:39→22:17)
[2019-12-13] MEDS: LEVAQUIN PREMIX IV 750 MG 750 MG/150 ML BAG IV SCH (13:39)
[2019-12-13] MEDS ORDERED: NS 1/2 1000 ML IV 1,000 ML IV ONE ×2 (13:46→21:34)
[2019-12-13] MEDS ORDERED: SALINE 3% 15 ML NEB TX NEB ONE (14:23)
[2019-12-13] MEDS: DUONEB 0.5 MG/3 MG (3 mL) NEB SCH ×2 (16:45→20:35)
[2019-12-13] MEDS: TYLENOL 325 MG TAB PO PRN (20:36)
[2019-12-13] MEDS: ATARAX TAB 25 MG PO SCH (22:17)
[2019-12-14] MEDS: NS 1/2 1000 ML IV 1,000 ML IV SCH ×3 (04:08→22:59)
[2019-12-14] MEDS: TUSSIONEX PENNKINETIC SUSP PO PRN (06:27)
[2019-12-14 06:35] LABS: BASOPHILS % (AUTO) 0.5 % (0.2-1.0); EOSINOPHILS % (AUTO) 0.5 % (0.9-2.9); HEMATOCRIT 32.7 % (36.0-47.0); LYMPHOCYTES % (AUTO) 37.3 % (21.0-51.0); MEAN CORPUSCULAR HEMOGLOBIN 27.4 pg (27.0-34.0); MEAN CORPUSCULAR HGB CONC 33.6 g/dL (33.0-35.0); MEAN CORPUSCULAR VOLUME 81.8 fL (80.0-100.0); MEAN PLATELET VOLUME 10.1 fL (7.4-11.0); MONOCYTES # (AUTO) 0.7 x10^3/uL (0.3-0.8); MONOCYTES % (AUTO) 12.8 % (0.0-13.0); NEUTROPHILS # (AUTO) 2.7 x10^3/uL (2.2-4.8); NEUTROPHILS % (AUTO) 48.9 % (42.0-75.0); PLATELET COUNT 131 X10^3/uL (150.0-450.0); WHITE BLOOD COUNT 5.5 X10^3/uL (3.6-10.0)
[2019-12-14 06:37] LABS: ALANINE AMINOTRANSFERASE 18 Units/L (12-78); ALBUMIN 2.6 g/dL (3.4-5.0); ALKALINE PHOSPHATASE 95 Units/L (46-116); ASPARTATE AMINO TRANSFERASE 26 Units/L (15-37); BLOOD UREA NITROGEN 4 mg/dL (7-18); CALCIUM 7.7 mg/dL (8.5-10.1); CARBON DIOXIDE 25.9 mmol/L (21-32); CHLORIDE 105 mmol/L (98-107); COR CA(FOR HYPOALB) 8.8 mg/dL (8.5-10.1); CREATININE 0.72 mg/dL (0.55-1.02); SODIUM 138 mmol/L (136-145); TOTAL PROTEIN 5.6 g/dL (6.4-8.2); eGFR NON BLACK RACES > 60 (>60)
[2019-12-14] MEDS ORDERED: POTASSIUM CHL 60 MEQ/NS 0.45% 500 ML IV PRN (07:35)
[2019-12-14] MEDS ORDERED: POTASSIUM CHL 40 MEQ/NS 0.45% 500 ML IV PRN (07:35)
[2019-12-14] MEDS ORDERED: MICRO K EXTEN CAP 10 MEQ PO PRN (07:35)
[2019-12-14] MEDS ORDERED: K-DUR TAB 20 MEQ PO PRN (07:35)
[2019-12-14] MEDS ORDERED: KLOR-CON PO PRN (07:35)
[2019-12-14] MEDS ORDERED: POTASSIUM CHLORIDE LIQ 20 MEQ UDC PO PRN (07:35)
[2019-12-14] MEDS ORDERED: K-RIDER 10 MEQ/NS 100 ML 10 MEQ/100 ML BAG IV PRN (07:35)
[2019-12-14] MEDS: ATARAX TAB 25 MG PO SCH ×2 (08:36→21:07)
[2019-12-14] MEDS: VSL#3 PO SCH (08:36)
[2019-12-14] MEDS: ROCEPHIN VIAL 1 GRAM 1 G in NS 100 ML IV + SPIKE MINIBAG* 100 ML IV SCH (08:37)
[2019-12-14] MEDS: LEVAQUIN PREMIX IV 750 MG 750 MG/150 ML BAG IV SCH (08:37)
[2019-12-14] MEDS: ROBITUSSIN DM PO SCH ×3 (08:37→21:07)
[2019-12-14] MEDS: DUONEB 0.5 MG/3 MG (3 mL) NEB SCH ×4 (08:59→20:06)
[2019-12-14] MEDS ORDERED: SEROquel TAB 25 mg PO SCH (09:00)
[2019-12-14] MEDS ORDERED: RisperDAL TAB 1 MG PO SCH (09:00)
[2019-12-14] MEDS: ZOFRAN INJ 4 MG VIAL IVP PRN (09:43)
[2019-12-14] MEDS: MAGNESIUM SULFATE 1 GRAM/100 mL PREMIX 1 GM/100 ML BAG IV PRN ×2 (11:00→15:34)
[2019-12-14] MEDS: SOLU-Medrol 125 MG VIAL IVP SCH ×3 (11:32→21:08)
--- NOTE | 2019-12-14 13:05 | DR.H&P ---
H&P - History & Physical for Day of: H&P Date: 12/13/19 - Chief Complaint Chief Complaint: fever, ccc, right flank pain - History of Present Illness History of Present Illness: PT IS 39 WF ER ADMISSION AFTER PRESENTING WITH CO FEVER, CHILLS, CCC AND FLANK PAIN. PT WAS SEEN IN ER ON TUESDAY AND WITH ACUTE BRONCHITIS AND WAS STARTED ON AMOXIL. PT CO VOMITING. PT CO LOWER BACK PAIN WITH TENDERNESS ON RIGHT SIDE. PT HAD INFLUENZA A AND UTI. PT CHEST XRAY REVEALED BRONCHITIS. PT HAD 103 TEMP. PT ADMITTED FOR TREATMENT OF BRONCHITIS FAILED OUTPT AND UTI SUSPECTED PYELONEPHRITIS. - Past Medical History Past Medical History: Anxiety, Asthma, Migraines - Past Surgical History Surgical History: Hysterectomy - Family History Family Medical History: Diabetes Mellitus, Cancer, Coronary Artery Disease, Hypertension - Social History Does patient currently use any type of tobacco product: Yes Have you used tobacco products in the last 12 months: Yes Type of Tobacco Use: Cigarettes How many years tobacco product used: 20 Does any household member use tobacco: Yes Alcohol Use: None Drug Use: None - Medications Home Medications: doxycycline Allergy (Verified 12/13/19 08:05) CONTINUE taking the following medications hydroxyzine HCl 25 mg PO BID 12/13/19 [History] quetiapine [Seroquel] 25 mg PO DAILY 12/13/19 [History] risperidone 1 mg PO DAILY 12/13/19 [History] - Review of Systems Constitutional: Fever, Chills, Weakness Eyes: No Symptoms Reported ENT: No Symptoms Reported Respiratory: Cough, Shortness of Breath, SOB with Excertion, Sputum, Wheezing Cardiovascular: No Symptoms Reported Gastrointestinal: Nausea, Abdominal Pain (RIGHT FLANK PAIN) Genitourinary: No Symptoms Reported Musculoskeletal: Back Pain Skin: No Symptoms Reported Neurological: Weakness - Physical Exam Vital Signs: Temperature 98.4 F Pulse Rate [Brachial] 109 Pulse Rate 91 Respiratory Rate 19 Blood Pressure [Right Arm] 103/57 Blood Pressure [Left Arm] 92/56 Blood Pressure 89/52 O2 Sat by Pulse Oximetry 96 Oriented: Normal Eyes: Normal Ear: Normal Nose: Other Throat: Exudate, Dry Respiratory: Wheezes Throughout, RLL Diminished, LLL Diminished Cardiovascular: Normal : Normal Auscultation: Bowel Sounds: Normal Palpation: Normal Tenderness: Normal Skin: Normal Musculoskeletal: Back:Thoracic, Back:Lumbar Psychiatric: Anxiety, Depression Affect: Depressed Speech Pattern: Clear, Appropriate - Assessment/Plan (1) Acute bronchitis Status: Acute Plan: ADMIT, IV HYDRATION. FEVER CONTROL, RESP THERAPY, TAMIFLU. IV ATBX, URINE CULTURE. VERIFY HOME MEDICATION, CXR ON ADMISSION (2) Influenza A Status: Acute (3) UTI (urinary tract infection) Status: Acute (4) Pyelonephritis Status: Acute (5) Nausea and vomiting Qualifiers: Vomiting type: unspecified Vomiting Intractability: non-intractable Qualified Code(s): R11.2 - Nausea with vomiting, unspecified Status: Acute (6) GERD (gastroesophageal reflux disease) Status: Chronic - Allergies Allergies/Adverse Reactions: Allergies Allergy/AdvReac Type Severity Reaction Status Date / Time doxycycline Allergy Verified 12/13/19 08:05
[2019-12-14] MEDS ORDERED: NS IV ONE (13:51)
[2019-12-14] MEDS ORDERED: NS 1/2 1000 ML IV 1,000 ML IV ONE ×2 (14:30→22:54)
[2019-12-14] MEDS: TYLENOL 325 MG TAB PO PRN (21:08)
[2019-12-15] MEDS: ZOFRAN INJ 4 MG VIAL IVP PRN (04:30)
[2019-12-15] MEDS: TUSSIONEX PENNKINETIC SUSP PO PRN (04:30)
[2019-12-15] MEDS: NS 1/2 1000 ML IV 1,000 ML IV SCH (06:10)
[2019-12-15 07:55] LABS: BASOPHILS % (AUTO) 0.3 % (0.2-1.0); LYMPHOCYTES # (AUTO) 1.1 X10^3/uL (1.3-2.9); LYMPHOCYTES % (AUTO) 20.1 % (21.0-51.0); MEAN CORPUSCULAR HEMOGLOBIN 27.2 pg (27.0-34.0); MEAN CORPUSCULAR HGB CONC 33.2 g/dL (33.0-35.0); MEAN CORPUSCULAR VOLUME 81.8 fL (80.0-100.0); MEAN PLATELET VOLUME 9.5 fL (7.4-11.0); MONOCYTES # (AUTO) 0.2 x10^3/uL (0.3-0.8); MONOCYTES % (AUTO) 4.3 % (0.0-13.0); NEUTROPHILS # (AUTO) 4.1 x10^3/uL (2.2-4.8); NEUTROPHILS % (AUTO) 75.3 % (42.0-75.0); PLATELET COUNT 158 X10^3/uL (150.0-450.0); RED BLOOD COUNT 4.04 X10^6/uL (3.5-5.4); RED CELL DISTRIBUTION WIDTH 14.1 % (11.6-16.5); WHITE BLOOD COUNT 5.5 X10^3/uL (3.6-10.0)
[2019-12-15] MEDS ORDERED: NS 1/2 1000 ML IV 1,000 ML IV ONE (07:58)
[2019-12-15 08:05] LABS: ALANINE AMINOTRANSFERASE 18 Units/L (12-78); ALBUMIN 2.7 g/dL (3.4-5.0); ALKALINE PHOSPHATASE 92 Units/L (46-116); ASPARTATE AMINO TRANSFERASE 20 Units/L (15-37); BLOOD UREA NITROGEN 4 mg/dL (7-18); CALCIUM 8.1 mg/dL (8.5-10.1); CHLORIDE 107 mmol/L (98-107); COR CA(FOR HYPOALB) 9.1 mg/dL (8.5-10.1); COR NA(FOR HYPERGLY) 143 mmol/L (136-145); CREATININE 0.73 mg/dL (0.55-1.02); MAGNESIUM 2.1 mg/dL (1.7-2.9); SODIUM 142 mmol/L (136-145); TOTAL PROTEIN 5.9 g/dL (6.4-8.2); eGFR NON BLACK RACES > 60 (>60)
[2019-12-15] MEDS: VSL#3 PO SCH (08:55)
[2019-12-15] MEDS: ROBITUSSIN DM PO SCH ×5 (08:55→20:23)
[2019-12-15] MEDS: ATARAX TAB 25 MG PO SCH ×2 (08:55→20:24)
[2019-12-15] MEDS: LOVENOX INJ 40 MG SYR SC SCH (08:56)
[2019-12-15] MEDS: NS 1000 ML 1,000 ML IV SCH ×4 (09:06→18:16)
[2019-12-15] MEDS: DUONEB 0.5 MG/3 MG (3 mL) NEB SCH ×4 (09:15→20:35)
[2019-12-15] MEDS: ROCEPHIN VIAL 1 GRAM 1 G in NS 100 ML IV + SPIKE MINIBAG* 100 ML IV SCH ×2 (10:00→10:30)
[2019-12-15] MEDS ORDERED: PHENERGAN TAB 25 MG PO PRN (10:11)
--- NOTE | 2019-12-15 10:17 | PCM.PROG ---
Progress Note Progress Note for Day of Date of Exam: 12/15/19 Subjective Subjective: Patient seen at bedside, she reports SOB and dry cough. She is being treated for Pyelonephritis and Flu. She reports nausea, one episode of vomiting yesterday. Denies diarrhea or abdominal pain. She has been drinking Gatorade. She reports feeling dizzy when standing up. She is currently on Rocephin and Levaquin. Urine culture showing E.coli. IVF at 75cc/hr. Will DC levaquin, continue Rocephin and add Tamiflu. Increase IVF to 125cc/hr. Switch Zofran to Phenergan for nausea. Advance diet as tolerated. Continue Duonebs. Past Medical Family Social History Past Med/Fam/Surg Hx: No changes since H&P Allergies: Allergies doxycycline Allergy (Verified 12/13/19 08:05) Review of Systems ROS: No change since H&P Vital Signs and I&O's Vital Signs: Temperature 98.2 F Pulse Rate [Brachial] 70 Pulse Rate 82 Respiratory Rate 20 Blood Pressure [Right Arm] 103/57 Blood Pressure [Left Arm] 95/59 Blood Pressure 89/52 O2 Sat by Pulse Oximetry 91 Intake and Output: Intake & Output 12/12/19 12/13/19 12/14/19 12/15/19 23:59 23:59 23:59 23:59 Intake Total 1680 / 1680 3415 / 3415 370 / 370 Balance 1680 / 1680 3415 / 3415 370 / 370 Physical Exam Oriented: Normal Eyes: Normal Ear: Normal Throat: Normal Respiratory: Normal Cardiovascular: Normal Auscultation: Bowel Sounds: Normal Tenderness: Normal Skin: Normal Musculoskeletal: Back:Thoracic and Back:Lumbar Psychiatric: Anxiety and Depression Affect: Depressed Speech Pattern: Clear and Appropriate Laboratory and Diagnostics Result Diagrams: 12/15/19 07:40 12/15/19 07:40 Labs: 12/13/19 08:25 Urine,Clean Catch Urine Culture - Final Escherichia Coli 12/13/19 11:22 Blood Blood Culture - Preliminary 12/13/19 08:55 Blood Blood Culture - Preliminary Laboratory WBC 5.5 X10^3/uL (3.6-10.0) 12/15/19 07:40 RBC 4.04 X10^6/uL (3.5-5.4) 12/15/19 07:40 Hgb 11.0 g/dL (12.0-16.0) L 12/15/19 07:40 Hct 33.0 % (36.0-47.0) L 12/15/19 07:40 MCV 81.8 fL (80.0-100.0) 12/15/19 07:40 MCH 27.2 pg (27.0-34.0) 12/15/19 07:40 MCHC 33.2 g/dL (33.0-35.0) 12/15/19 07:40 RDW 14.1 % (11.6-16.5) 12/15/19 07:40 Plt Count 158 X10^3/uL (150.0-450.0) 12/15/19 07:40 MPV 9.5 fL (7.4-11.0) 12/15/19 07:40 Neut % (Auto) 75.3 % (42.0-75.0) H 12/15/19 07:40 Lymph % (Auto) 20.1 % (21.0-51.0) L 12/15/19 07:40 [place] % (Auto) 4.3 % (0.0-13.0) 12/15/19 07:40 Eos % (Auto) 0.0 % (0.9-2.9) L 12/15/19 07:40 Baso % (Auto) 0.3 % (0.2-1.0) 12/15/19 07:40 Neut # (Auto) 4.1 x10^3/uL (2.2-4.8) 12/15/19 07:40 Lymph # (Auto) 1.1 X10^3/uL (1.3-2.9) L 12/15/19 07:40 [place] # (Auto) 0.2 x10^3/uL (0.3-0.8) L 12/15/19 07:40 Eos # (Auto) 0.0 x10^3/uL (0.0-0.2) 12/15/19 07:40 Baso # (Auto) 0.0 X10^3/uL (0.0-0.1) 12/15/19 07:40 Absolute Nucleated RBC 0.0 /100WBC 12/15/19 07:40 Sodium 142 mmol/L (136-145) 12/15/19 07:40 Corrected Sodium 143 mmol/L (136-145) 12/15/19 07:40 Potassium 4.2 mmol/L (3.5-5.1) 12/15/19 07:40 Chloride 107 mmol/L (98-107) 12/15/19 07:40 Carbon Dioxide 23.0 mmol/L (21-32) 12/15/19 07:40 BUN 4 mg/dL (7-18) L 12/15/19 07:40 Creatinine 0.73 mg/dL (0.55-1.02) 12/15/19 07:40 Est GFR (MDRD) Af Amer > 60 (>60) 12/15/19 07:40 Est GFR (MDRD) Non-Af > 60 (>60) 12/15/19 07:40 Glucose 162 mg/dL (65-99) H 12/15/19 07:40 Lactic Acid 0.4 mmol/L (0.4-2.0) 12/13/19 11:22 Calcium 8.1 mg/dL (8.5-10.1) L 12/15/19 07:40 Corrected Calcium 9.1 mg/dL (8.5-10.1) 12/15/19 07:40 Magnesium 2.1 mg/dL (1.7-2.9) 12/15/19 07:40 Total Bilirubin 0.10 mg/dL (0.2-1.0) L 12/15/19 07:40 AST 20 Units/L (15-37) 12/15/19 07:40 ALT 18 Units/L (12-78) 12/15/19 07:40 Alkaline Phosphatase 92 Units/L (46-116) 12/15/19 07:40 Total Protein 5.9 g/dL (6.4-8.2) L 12/15/19 07:40 Albumin 2.7 g/dL (3.4-5.0) L 12/15/19 07:40 Globulin 3.2 g/dL (2.5-4.5) 12/15/19 07:40 Albumin/Globulin Ratio 0.8 Ratio (1.1-2.1) L 12/15/19 07:40 Specimen Type Clean catch urine 12/13/19 08:25 Urine Color Yellow (YELLOW) 12/13/19 08:25 Urine Appearance Cloudy (CLEAR) 12/13/19 08:25 Urine pH 5.0 (5.0 - 8.0) 12/13/19 08:25 Ur Specific [place] 1.015 (1.000-1.030) 12/13/19 08:25 Urine Protein 1+ (NEGATIVE) 12/13/19 08:25 Urine Glucose (UA) Negative (NEGATIVE) 12/13/19 08:25 Urine Ketones Negative (NEGATIVE) 12/13/19 08:25 Urine Occult Blood 4+ (NEGATIVE) 12/13/19 08:25 Urine Nitrite Positive (NEGATIVE) 12/13/19 08:25 Urine Bilirubin Negative (NEGATIVE) 12/13/19 08:25 Urine Urobilinogen Normal (NORMAL) 12/13/19 08:25 Ur Leukocyte Esterase 2+ (NEGATIVE) 12/13/19 08:25 Urine RBC 5-10 /HPF (0-3) A 12/13/19 08:25 Urine WBC 20-30 /HPF (0-5) A 12/13/19 08:25 Ur Squamous Epith Cells Few /HPF (NEGATIVE) 12/13/19 08:25 Urine Bacteria 4+ /HPF (NEGATIVE) 12/13/19 08:25 Ur Culture Indicated? Yes/culture set up 12/13/19 08:25 Influenza Type A (PCR) Positive (NEGATIVE) A 12/13/19 08:25 Influenza Type B (PCR) Negative (NEGATIVE) 12/13/19 08:25 S. pyogenes (TEM-PCR) Not detected (NOT DETECT) 12/13/19 08:25 Plan (1) Acute bronchitis: Status: Acute Qualifiers: Bronchitis organism: unspecified organism Qualified Code(s): J20.9 - Acute bronchitis, unspecified Plan: CXR on admission: negative for acute process Continue IV abx, duonebs (2) Influenza A: Status: Acute Plan: Flu positive, will start Tamiflu (3) UTI (urinary tract infection): Status: Acute Qualifiers: Urinary tract infection type: acute pyelonephritis Qualified Code(s): N10 - Acute pyelonephritis Plan: Urine culture growing pansensitive E.coli. Continue Rocephin Blood Cx negative (4) Pyelonephritis: Status: Acute (5) Nausea and vomiting: Status: Acute Qualifiers: Vomiting Intractability: non-intractable Vomiting type: unspecified Qualified Code(s): R11.2 - Nausea with vomiting, unspecified Plan: Patient states Zofran is not helping, will switch to Phenergan. Advance diet as tolerated (6) GERD (gastroesophageal reflux disease): Status: Chronic Qualifiers: Esophagitis presence: esophagitis presence not specified Qualified Code(s): K21.9 - Gastro-esophageal reflux disease without esophagitis
[2019-12-15] MEDS: TAMIFLU PO SCH ×2 (14:54→20:24)
[2019-12-15] MEDS: RisperDAL TAB 1 MG PO SCH (20:24)
[2019-12-15] MEDS: SEROquel TAB 25 mg PO SCH (20:25)
[2019-12-16] MEDS: TUSSIONEX PENNKINETIC SUSP PO PRN (01:46)
[2019-12-16] MEDS: NS 1000 ML 1,000 ML IV SCH ×4 (03:09→17:49)
[2019-12-16 07:13] LABS: BASOPHILS % (AUTO) 0.1 % (0.2-1.0); EOSINOPHILS % (AUTO) 0.1 % (0.9-2.9); HEMATOCRIT 28.8 % (36.0-47.0); HEMOGLOBIN 9.9 g/dL (12.0-16.0); LYMPHOCYTES # (AUTO) 2.8 X10^3/uL (1.3-2.9); LYMPHOCYTES % (AUTO) 33.1 % (21.0-51.0); MEAN CORPUSCULAR HEMOGLOBIN 27.8 pg (27.0-34.0); MEAN CORPUSCULAR HGB CONC 34.3 g/dL (33.0-35.0); MEAN CORPUSCULAR VOLUME 81.3 fL (80.0-100.0); MEAN PLATELET VOLUME 9.7 fL (7.4-11.0); MONOCYTES # (AUTO) 0.4 x10^3/uL (0.3-0.8); MONOCYTES % (AUTO) 4.7 % (0.0-13.0); NEUTROPHILS # (AUTO) 5.2 x10^3/uL (2.2-4.8); PLATELET COUNT 143 X10^3/uL (150.0-450.0); RED BLOOD COUNT 3.54 X10^6/uL (3.5-5.4); WHITE BLOOD COUNT 8.4 X10^3/uL (3.6-10.0)
[2019-12-16 07:23] LABS: BLOOD UREA NITROGEN 4 mg/dL (7-18); CALCIUM 7.7 mg/dL (8.5-10.1); CARBON DIOXIDE 26.8 mmol/L (21-32); CHLORIDE 111 mmol/L (98-107); CREATININE 0.57 mg/dL (0.55-1.02); MAGNESIUM 1.9 mg/dL (1.7-2.9); SODIUM 144 mmol/L (136-145); eGFR NON BLACK RACES > 60 (>60)
[2019-12-16] MEDS: ROCEPHIN VIAL 1 GRAM 1 G in NS 100 ML IV + SPIKE MINIBAG* 100 ML IV SCH (08:17)
[2019-12-16] MEDS: LOVENOX INJ 40 MG SYR SC SCH (08:20)
[2019-12-16] MEDS: ATARAX TAB 25 MG PO SCH ×2 (08:21→20:54)
[2019-12-16] MEDS: TAMIFLU PO SCH ×2 (08:22→20:55)
[2019-12-16] MEDS: VSL#3 PO SCH (08:22)
[2019-12-16] MEDS: ROBITUSSIN DM PO SCH ×3 (08:23→20:54)
[2019-12-16] MEDS: DUONEB 0.5 MG/3 MG (3 mL) NEB SCH ×4 (09:19→20:15)
[2019-12-16] MEDS ORDERED: PULMICORT NEB TX 0.5 MG NEB ONE (09:20)
[2019-12-16] MEDS: PULMICORT NEB TX 0.5 MG NEB SCH ×2 (09:21→20:15)
--- NOTE | 2019-12-16 10:01 | PCM.PROG ---
Progress Note Progress Note for Day of Date of Exam: 12/16/19 Subjective Subjective: Patient seen at bedside, reports feeling better. She states breathing has improved, coughing up phlegm. She reports some dizziness with standing. Her BP continues to be in 80-90s systolic. She is currently receiving Rocephin for E.coli UTI and Tamiflu for Influenza. Blood cultures remain neg ative, patient afebrile. Will continue abx. Repeat CXR today. Will give one bolus of NS, continue maintenance fluids, advance diet to full liquids. Check Orthostatics. Past Medical Family Social History Past Med/Fam/Surg Hx: No changes since H&P Allergies: Allergies doxycycline Allergy (Verified 12/13/19 08:05) Review of Systems ROS: No change since H&P Vital Signs and I&O's Vital Signs: Temperature 98.8 F Pulse Rate [Brachial] 84 Pulse Rate 94 Respiratory Rate 20 Blood Pressure [Right Arm] 103/57 Blood Pressure [Left Arm] 88/52 Blood Pressure 89/52 O2 Sat by Pulse Oximetry 92 Intake and Output: Intake & Output 12/13/19 12/14/19 12/15/19 12/16/19 23:59 23:59 23:59 23:59 Intake Total 1680 / 1680 3415 / 3415 3222 / 3222 946 / 946 Balance 1680 / 1680 3415 / 3415 3222 / 3222 946 / 946 Physical Exam Oriented: Normal Eyes: Normal Ear: Normal Throat: Normal Respiratory: Normal Cardiovascular: Normal Auscultation: Bowel Sounds: Normal Tenderness: Normal Skin: Normal Musculoskeletal: Back:Thoracic and Back:Lumbar Psychiatric: Anxiety and Depression Affect: Depressed Speech Pattern: Clear and Appropriate Laboratory and Diagnostics Result Diagrams: 12/16/19 06:15 12/16/19 06:15 Labs: 12/15/19 16:02 Sputum - Expectorated Sputum - Final 12/13/19 08:25 Urine,Clean Catch Urine Culture - Final Escherichia Coli 12/13/19 11:22 Blood Blood Culture - Preliminary 12/13/19 08:55 Blood Blood Culture - Preliminary Laboratory WBC 8.4 X10^3/uL (3.6-10.0) 12/16/19 06:15 RBC 3.54 X10^6/uL (3.5-5.4) 12/16/19 06:15 Hgb 9.9 g/dL (12.0-16.0) L 12/16/19 06:15 Hct 28.8 % (36.0-47.0) L 12/16/19 06:15 MCV 81.3 fL (80.0-100.0) 12/16/19 06:15 MCH 27.8 pg (27.0-34.0) 12/16/19 06:15 MCHC 34.3 g/dL (33.0-35.0) 12/16/19 06:15 RDW 14.0 % (11.6-16.5) 12/16/19 06:15 Plt Count 143 X10^3/uL (150.0-450.0) L 12/16/19 06:15 MPV 9.7 fL (7.4-11.0) 12/16/19 06:15 Neut % (Auto) 62.0 % (42.0-75.0) 12/16/19 06:15 Lymph % (Auto) 33.1 % (21.0-51.0) 12/16/19 06:15 [place] % (Auto) 4.7 % (0.0-13.0) 12/16/19 06:15 Eos % (Auto) 0.1 % (0.9-2.9) L 12/16/19 06:15 Baso % (Auto) 0.1 % (0.2-1.0) L 12/16/19 06:15 Neut # (Auto) 5.2 x10^3/uL (2.2-4.8) H 12/16/19 06:15 Lymph # (Auto) 2.8 X10^3/uL (1.3-2.9) 12/16/19 06:15 [place] # (Auto) 0.4 x10^3/uL (0.3-0.8) 12/16/19 06:15 Eos # (Auto) 0.0 x10^3/uL (0.0-0.2) 12/16/19 06:15 Baso # (Auto) 0.0 X10^3/uL (0.0-0.1) 12/16/19 06:15 Absolute Nucleated RBC 0.0 /100WBC 12/16/19 06:15 Sodium 144 mmol/L (136-145) 12/16/19 06:15 Corrected Sodium TNP 12/16/19 06:15 Potassium 4.0 mmol/L (3.5-5.1) 12/16/19 06:15 Chloride 111 mmol/L (98-107) H 12/16/19 06:15 Carbon Dioxide 26.8 mmol/L (21-32) 12/16/19 06:15 BUN 4 mg/dL (7-18) L 12/16/19 06:15 Creatinine 0.57 mg/dL (0.55-1.02) 12/16/19 06:15 Est GFR (MDRD) Af Amer > 60 (>60) 12/16/19 06:15 Est GFR (MDRD) Non-Af > 60 (>60) 12/16/19 06:15 Glucose 84 mg/dL (65-99) 12/16/19 06:15 Lactic Acid 0.4 mmol/L (0.4-2.0) 12/13/19 11:22 Calcium 7.7 mg/dL (8.5-10.1) L 12/16/19 06:15 Corrected Calcium 9.1 mg/dL (8.5-10.1) 12/15/19 07:40 Magnesium 1.9 mg/dL (1.7-2.9) 12/16/19 06:15 Total Bilirubin 0.10 mg/dL (0.2-1.0) L 12/15/19 07:40 AST 20 Units/L (15-37) 12/15/19 07:40 ALT 18 Units/L (12-78) 12/15/19 07:40 Alkaline Phosphatase 92 Units/L (46-116) 12/15/19 07:40 Total Protein 5.9 g/dL (6.4-8.2) L 12/15/19 07:40 Albumin 2.7 g/dL (3.4-5.0) L 12/15/19 07:40 Globulin 3.2 g/dL (2.5-4.5) 12/15/19 07:40 Albumin/Globulin Ratio 0.8 Ratio (1.1-2.1) L 12/15/19 07:40 Specimen Type Clean catch urine 12/13/19 08:25 Urine Color Yellow (YELLOW) 12/13/19 08:25 Urine Appearance Cloudy (CLEAR) 12/13/19 08:25 Urine pH 5.0 (5.0 - 8.0) 12/13/19 08:25 Ur Specific [place] 1.015 (1.000-1.030) 12/13/19 08:25 Urine Protein 1+ (NEGATIVE) 12/13/19 08:25 Urine Glucose (UA) Negative (NEGATIVE) 12/13/19 08:25 Urine Ketones Negative (NEGATIVE) 12/13/19 08:25 Urine Occult Blood 4+ (NEGATIVE) 12/13/19 08:25 Urine Nitrite Positive (NEGATIVE) 12/13/19 08:25 Urine Bilirubin Negative (NEGATIVE) 12/13/19 08:25 Urine Urobilinogen Normal (NORMAL) 12/13/19 08:25 Ur Leukocyte Esterase 2+ (NEGATIVE) 12/13/19 08:25 Urine RBC 5-10 /HPF (0-3) A 12/13/19 08:25 Urine WBC 20-30 /HPF (0-5) A 12/13/19 08:25 Ur Squamous Epith Cells Few /HPF (NEGATIVE) 12/13/19 08:25 Urine Bacteria 4+ /HPF (NEGATIVE) 12/13/19 08:25 Ur Culture Indicated? Yes/culture set up 12/13/19 08:25 Influenza Type A (PCR) Positive (NEGATIVE) A 12/13/19 08:25 Influenza Type B (PCR) Negative (NEGATIVE) 12/13/19 08:25 S. pyogenes (TEM-PCR) Not detected (NOT DETECT) 12/13/19 08:25 Plan (1) Acute bronchitis: Status: Acute Qualifiers: Bronchitis organism: unspecified organism Qualified Code(s): J20.9 - Acute bronchitis, unspecified Plan: CXR on admission: negative for acute process Continue IV abx, duonebs, sputum culture ordered Will repeat CXR today (2) Influenza A: Status: Acute Plan: Flu positive, continue Tamiflu (3) UTI (urinary tract infection): Status: Acute Qualifiers: Urinary tract infection type: acute pyelonephritis Qualified Code(s): N10 - Acute pyelonephritis Plan: Urine culture growing pansensitive E.coli. Continue Rocephin Blood Cx negative (4) Pyelonephritis: Status: Acute (5) Nausea and vomiting: Status: Acute Qualifiers: Vomiting Intractability: non-intractable Vomiting type: unspecified Q ualified Code(s): R11.2 - Nausea with vomiting, unspecified Plan: reports improvement, able to tolerate clears yesterday, will advance to full liquids and monitor. Phenergan prn (6) GERD (gastroesophageal reflux disease): Status: Chronic Qualifiers: Esophagitis presence: esophagitis presence not specified Qualified Code(s): K21.9 - Gastro-esophageal reflux disease without esophagitis (7) Hypotension: Status: Acute Qualifiers: Hypotension type: unspecified hypotension type Qualified Code(s): I95.9 - Hypotension, unspecified Plan: Will give NS 500cc now, continue maintenance IVF Check orthostatics (8) Anemia: Status: Acute Qualifiers: Anemia type: unspecified type Qualified Code(s): D64.9 - Anemia, unspecified Plan: Hgb: 9.9 from 11, could be due to IVF Will check anemia panel
[2019-12-16] MEDS: MAGNESIUM SULFATE 1 GRAM/100 mL PREMIX 1 GM/100 ML BAG IV PRN (10:05)
--- NOTE | 2019-12-16 11:02 | RAD ---
HISTORYSOB, RULE OUT INFECTION VS EDEMASTUDYCHEST, PA/LAT [id number]/06/2020FINDINGSStable cardiomediastinal silhouette. Developing streaky bibasilar opacities and probable small left effusion. No gross edema or visible pneumothorax. No acute osseous finding.IMPRESSIONStreaky bibasilar opacities and left pleural effusion. Atelectasis or infiltrate.Electronically signed by: Kashmir Boone (Dec 16, 2019 11:00:25)
[2019-12-16] MEDS: NS 500 ML IV 500 ML IV ONE ×2 (13:30→14:43)
[2019-12-16] MEDS ORDERED: NS 500 ML IV 500 ML IV ONE (13:43)
[2019-12-16] MEDS: LEVAQUIN PREMIX IV 750 MG 750 MG/150 ML BAG IV SCH (14:25)
[2019-12-16] MEDS: MILK OF MAGNESIA PO SCH (20:53)
[2019-12-16] MEDS: COLACE CAP 100 MG PO SCH (20:54)
[2019-12-16] MEDS: RisperDAL TAB 1 MG PO SCH (20:54)
[2019-12-16] MEDS: SEROquel TAB 25 mg PO SCH (20:54)
[2019-12-17 06:15] LABS: BASOPHILS % (AUTO) 0.4 % (0.2-1.0); EOSINOPHILS # (AUTO) 0.1 x10^3/uL (0.0-0.2); HEMOGLOBIN 10.5 g/dL (12.0-16.0); LYMPHOCYTES # (AUTO) 2.7 X10^3/uL (1.3-2.9); LYMPHOCYTES % (AUTO) 43.3 % (21.0-51.0); MEAN CORPUSCULAR HEMOGLOBIN 27.6 pg (27.0-34.0); MEAN CORPUSCULAR HGB CONC 33.7 g/dL (33.0-35.0); MEAN CORPUSCULAR VOLUME 81.8 fL (80.0-100.0); MONOCYTES # (AUTO) 0.5 x10^3/uL (0.3-0.8); MONOCYTES % (AUTO) 7.4 % (0.0-13.0); NEUTROPHILS % (AUTO) 47.9 % (42.0-75.0); PLATELET COUNT 161 X10^3/uL (150.0-450.0); RED BLOOD COUNT 3.79 X10^6/uL (3.5-5.4); RED CELL DISTRIBUTION WIDTH 14.1 % (11.6-16.5); WHITE BLOOD COUNT 6.2 X10^3/uL (3.6-10.0)
[2019-12-17 06:21] LABS: BLOOD UREA NITROGEN 3 mg/dL (7-18); CALCIUM 7.8 mg/dL (8.5-10.1); CARBON DIOXIDE 27.6 mmol/L (21-32); CHLORIDE 108 mmol/L (98-107); CREATININE 0.61 mg/dL (0.55-1.02); MAGNESIUM 2.4 mg/dL (1.7-2.9); SODIUM 142 mmol/L (136-145); eGFR NON BLACK RACES > 60 (>60)
[2019-12-17] MEDS: ROCEPHIN VIAL 1 GRAM 1 G in NS 100 ML IV + SPIKE MINIBAG* 100 ML IV SCH (08:52)
[2019-12-17] MEDS: ROBITUSSIN DM PO SCH ×4 (08:55→21:45)
[2019-12-17] MEDS: VSL#3 PO SCH (08:55)
[2019-12-17] MEDS: MILK OF MAGNESIA PO SCH ×3 (08:55→21:46)
[2019-12-17] MEDS: COLACE CAP 100 MG PO SCH ×2 (08:55→21:45)
[2019-12-17] MEDS: ATARAX TAB 25 MG PO SCH ×2 (08:56→21:46)
[2019-12-17] MEDS: TAMIFLU PO SCH ×2 (08:56→21:45)
[2019-12-17] MEDS: LOVENOX INJ 40 MG SYR SC SCH (08:56)
[2019-12-17] MEDS: PULMICORT NEB TX 0.5 MG NEB SCH ×2 (09:21→21:29)
[2019-12-17] MEDS: DUONEB 0.5 MG/3 MG (3 mL) NEB SCH ×4 (09:21→21:28)
[2019-12-17] MEDS: LEVAQUIN PREMIX IV 750 MG 750 MG/150 ML BAG IV SCH (09:23)
[2019-12-17] MEDS: NS 1000 ML 1,000 ML IV SCH ×2 (09:24→18:01)
--- NOTE | 2019-12-17 10:21 | RAD ---
HISTORYPNEUMONIASTUDYCHEST, PA/LAT ADULTCOMPARISON12/16/19FINDINGSThe trachea is midline. The cardiac silhouette is unremarkable. Foci of atelectasis or infiltrate in the lung bases have increased compared to the prior study. On the lateral view there is suggestion of a small amount of pleural fluid on the left posteriorly. No CHF or pneumothorax is seen. Osseous structures are intact..IMPRESSIONInterval increase in bibasilar foci of atelectasis or infiltrate. A small amount of pleural fluid may be present posteriorly on the left. No CHF or pneumothorax is seen.Electronically signed by: ROYER SOUSA (Dec 17, 2019 10:19:20)
[2019-12-17] MEDS: RisperDAL TAB 1 MG PO SCH (21:46)
[2019-12-17] MEDS: SEROquel TAB 25 mg PO SCH (21:46)
[2019-12-18 06:28] LABS: BASOPHILS % (AUTO) 0.3 % (0.2-1.0); EOSINOPHILS # (AUTO) 0.2 x10^3/uL (0.0-0.2); EOSINOPHILS % (AUTO) 2.7 % (0.9-2.9); HEMOGLOBIN 11.1 g/dL (12.0-16.0); LYMPHOCYTES # (AUTO) 2.6 X10^3/uL (1.3-2.9); LYMPHOCYTES % (AUTO) 37.5 % (21.0-51.0); MEAN CORPUSCULAR HEMOGLOBIN 27.3 pg (27.0-34.0); MEAN CORPUSCULAR HGB CONC 33.6 g/dL (33.0-35.0); MEAN CORPUSCULAR VOLUME 81.1 fL (80.0-100.0); MEAN PLATELET VOLUME 8.8 fL (7.4-11.0); MONOCYTES # (AUTO) 0.5 x10^3/uL (0.3-0.8); MONOCYTES % (AUTO) 6.9 % (0.0-13.0); NEUTROPHILS # (AUTO) 3.6 x10^3/uL (2.2-4.8); NEUTROPHILS % (AUTO) 52.6 % (42.0-75.0); PLATELET COUNT 199 X10^3/uL (150.0-450.0); RED BLOOD COUNT 4.06 X10^6/uL (3.5-5.4); RED CELL DISTRIBUTION WIDTH 13.7 % (11.6-16.5); WHITE BLOOD COUNT 6.8 X10^3/uL (3.6-10.0)
[2019-12-18 06:45] LABS: ALANINE AMINOTRANSFERASE 39 Units/L (12-78); ALBUMIN 2.7 g/dL (3.4-5.0); ALKALINE PHOSPHATASE 102 Units/L (46-116); ASPARTATE AMINO TRANSFERASE 28 Units/L (15-37); BLOOD UREA NITROGEN 3 mg/dL (7-18); CARBON DIOXIDE 27.3 mmol/L (21-32); CHLORIDE 105 mmol/L (98-107); SODIUM 140 mmol/L (136-145); TOTAL PROTEIN 5.9 g/dL (6.4-8.2); eGFR NON BLACK RACES > 60 (>60)
[2019-12-18] MEDS: ROCEPHIN VIAL 1 GRAM 1 G in NS 100 ML IV + SPIKE MINIBAG* 100 ML IV SCH (08:44)
[2019-12-18] MEDS: ROBITUSSIN DM PO SCH ×2 (08:46→08:47)
[2019-12-18] MEDS: VSL#3 PO SCH (08:46)
[2019-12-18] MEDS: COLACE CAP 100 MG PO SCH (08:46)
[2019-12-18] MEDS: ATARAX TAB 25 MG PO SCH (08:47)
[2019-12-18] MEDS: LOVENOX INJ 40 MG SYR SC SCH (08:47)
[2019-12-18] MEDS: MILK OF MAGNESIA PO SCH (08:48)
[2019-12-18] MEDS: TAMIFLU PO SCH (08:48)
[2019-12-18] MEDS ORDERED: MEDROL DOSEPAK 4 MG PER TAB PO NR (09:00)
[2019-12-18] MEDS: LEVAQUIN PREMIX IV 750 MG 750 MG/150 ML BAG IV SCH (10:00)
[2019-12-18 13:15] VITALS: BP 85/50
== END 2019-12-18 12:00 | disposition home or self-care (01) | DRG 194 ==
LOC: MED/SURG 08:04 → ER 08:04 → MED/SURG 11:51
PROVIDERS: ADMIT Internal Medicine; ATTEND Internal Medicine
DX: I95.89 Other hypotension; N10 Acute pyelonephritis; R06.02 Shortness of breath; K21.9 Gastro-esophageal reflux disease without esophagitis; J01.80 Other acute sinusitis; N39.0 Urinary tract infection, site not specified; F31.9 Bipolar disorder, unspecified; R11.2 Nausea with vomiting, unspecified; B96.29 Other Escherichia coli [E. coli] as the cause of diseases classified elsewhere; J10.1 Influenza due to other identified influenza virus with other respiratory manifestations; D64.89 Other specified anemias; J18.0 Bronchopneumonia, unspecified organism
CPT/HCPCS: 36415; 71010; 71020; 71045; 71046; 80048; 80053; 81001; 82607; 82728; 82746; 83540; 83605; 83735; 84466; 85025; 87040; 87070; 87086; 87088; 87186; 87205; 87502; 87651; 94640; 94760; 96365; 96367; 96372; 96374; 96375; 99282; 99284; A4222; G0378; G9035; J0696; J1650; J1885; J1956; J2405; J2930; J3475; J3490; J7030; J7040; J7050; J7620; J7626; Q0169; S0028

== ENCOUNTER 2021-03-03 14:30 | Observation (INO) ==
[2021-03-03 16:21] VITALS: BMI 41.8
--- NOTE | 2021-03-03 17:21 | DR.H&P ---
H&P - History & Physical for Day of: H&P Date: 03/03/21 - Chief Complaint Chief Complaint: MUSCLE CRAMPS ALL OVER, WEAKNESS, LOW POTASSIUM. "RIGHT EAR INFECTION" - History of Present Illness History of Present Illness: PT IS 40 WF DIRECT ADMIT WITH - Past Medical History Past Medical History: Depression, Anxiety, Asthma, Migraines - Past Surgical History Surgical History: Cholecystectomy, Hysterectomy, Tonsillectomy, Other - Family History Family Medical History: Diabetes Mellitus, Cancer, Coronary Artery Disease, Hypertension - Social History Does patient currently use any type of tobacco product: Yes Have you used tobacco products in the last 12 months: Yes Type of Tobacco Use: Cigarettes Does any household member use tobacco: Yes Alcohol Use: None Drug Use: None Risks, benefits, and alternatives of opioids discussed: No - Medications Home Medications: doxycycline Allergy (Verified 03/03/21 16:10) CONTINUE taking the following medications bupropion HCl 75 mg PO BID 03/03/21 [History] famotidine 40 mg PO QHS 03/03/21 [History] sumatriptan succinate 100 mg PO BID 03/03/21 [History] - Review of Systems Constitutional: Malaise Eyes: No Symptoms Reported ENT: Ear Pain Respiratory: No Symptoms Reported Cardiovascular: No Symptoms Reported Gastrointestinal: Diarrhea Genitourinary: No Symptoms Reported Skin: No Symptoms Reported Neurological: Other (RIGHT SIDE "MIGRAINE MONZON") - Physical Exam Vital Signs: Temperature 98.5 F Pulse Rate [Left Brachial] 84 Respiratory Rate 20 Blood Pressure [Right Arm] 98/61 Blood Pressure [Left Arm] 127/75 Blood Pressure 116/67 O2 Sat by Pulse Oximetry 98 Oriented: Normal Eyes: Normal Ear: Right Nose: Normal Throat: Normal Respiratory: Clear Throughout Cardiovascular: Normal : Normal Auscultation: Bowel Sounds: Normal Palpation: Normal Tenderness: Normal Skin: Decreased [place] Musculoskeletal: Tender (C SPINE) Psychiatric: Anxiety Mood Description: Anxious Affect: Anxious Speech Pattern: Clear, Appropriate - Assessment/Plan (1) Hypokalemia Status: Acute Plan: ADMIT, GENTLE IV HYDRATION. POTASSIUM REPLACEMENT. VERIFY HOME MEDICATION, IV ROCEPHIN. MUCINEX DM, ZYRTEX FOR SINUS. ORAL HYDRATION, AM LABS PRN PAIN CONTROL (2) Dehydration Status: Acute (3) Sinusitis Qualifiers: Sinusitis location: unspecified location Chronicity: acute Recurrence: not specified as recurrent Qualified Code(s): J01.90 - Acute sinusitis, unspecified Status: Acute (4) Migraine headache Status: Acute (5) GERD (gastroesophageal reflux disease) Qualifiers: Esophagitis presence: esophagitis presence not specified Qualified Code(s): K21.9 - Gastro-esophageal reflux disease without esophagitis Status: Chronic - Allergies Allergies/Adverse Reactions: Allergies Allergy/AdvReac Type Severity Reaction Status Date / Time doxycycline Allergy Verified 03/03/21 16:10
[2021-03-03 17:56] LABS: BASOPHILS # (AUTO) 0.1 X10^3/uL (0.0-0.1); EOSINOPHILS # (AUTO) 0.2 x10^3/uL (0.0-0.2); EOSINOPHILS % (AUTO) 1.5 % (0.9-2.9); HEMATOCRIT 37.9 % (36.0-47.0); HEMOGLOBIN 12.6 g/dL (12.0-16.0); LYMPHOCYTES % (AUTO) 27.3 % (21.0-51.0); MEAN CORPUSCULAR HEMOGLOBIN 27.1 pg (27.0-34.0); MEAN CORPUSCULAR HGB CONC 33.1 g/dL (33.0-35.0); MEAN CORPUSCULAR VOLUME 81.9 fL (80.0-100.0); MEAN PLATELET VOLUME 10.1 fL (7.4-11.0); MONOCYTES # (AUTO) 0.6 x10^3/uL (0.3-0.8); MONOCYTES % (AUTO) 5.6 % (0.0-13.0); NEUTROPHILS % (AUTO) 64.6 % (42.0-75.0); PLATELET COUNT 219 X10^3/uL (150.0-450.0); RED BLOOD COUNT 4.63 X10^6/uL (3.5-5.4); RED CELL DISTRIBUTION WIDTH 13.7 % (11.6-16.5); WHITE BLOOD COUNT 10.9 X10^3/uL (3.6-10.0)
[2021-03-03] MEDS: ROCEPHIN 1 GRAM IV PREMIX 1 G/50 ML IV.SOLN. IV SCH (18:02)
[2021-03-03] MEDS: NS 1000 ML 1,000 ML IV SCH (18:02)
[2021-03-03 18:05] LABS: ERYTHROCYTE SEDIMENTATION RATE 6 MM/HOUR (0-20)
[2021-03-03] MEDS: NORCO 5/325 MG TAB PO PRN (18:07)
[2021-03-03 18:08] LABS: ALANINE AMINOTRANSFERASE 17 Units/L (12-78); ALBUMIN 3.3 g/dL (3.4-5.0); ALKALINE PHOSPHATASE 122 Units/L (46-116); ASPARTATE AMINO TRANSFERASE 12 Units/L (15-37); BLOOD UREA NITROGEN 2 mg/dL (7-18); CALCIUM 8.8 mg/dL (8.5-10.1); CARBON DIOXIDE 30.3 mmol/L (21-32); CHLORIDE 105 mmol/L (98-107); COR CA(FOR HYPOALB) 9.4 mg/dL (8.5-10.1); CREATINE KINASE 38 Units/L (26-192); CREATININE 0.69 mg/dL (0.55-1.02); MAGNESIUM 1.9 mg/dL (1.7-2.9); SODIUM 143 mmol/L (136-145); TOTAL PROTEIN 6.5 g/dL (6.4-8.2); eGFR NON BLACK RACES > 60 (>60)
[2021-03-03] MEDS: ZyrTEC TAB 10 MG PO SCH (18:09)
[2021-03-03] MEDS: MICRO K EXTEN CAP 10 MEQ PO SCH (18:09)
[2021-03-03] MEDS: MUCINEX DM PO SCH (20:33)
[2021-03-03 20:53] LABS: BILIRUBIN,URINE NEGATIVE (NEGATIVE); BLOOD/HEMOGLOBIN,URINE NEGATIVE (NEGATIVE); GLUCOSE, URINE NEGATIVE (NEGATIVE); KETONES,URINE NEGATIVE (NEGATIVE); LEUKOCYTE ESTERASE ,URINE NEGATIVE (NEGATIVE); NITRITES,URINE NEGATIVE (NEGATIVE); PROTEIN,URINE NEGATIVE (NEGATIVE); UROBILINOGEN,URINE NORMAL (NORMAL)
[2021-03-03] MEDS ORDERED: PEPCID TAB 40 MG PO SCH (21:00)
[2021-03-03] MEDS ORDERED: SEROquel TAB 25 mg PO SCH (21:00)
[2021-03-03 21:02] LABS: APPEARANCE,URINE CLEAR (CLEAR); COLOR,URINE YELLOW (YELLOW)
[2021-03-04] MEDS: NS 1000 ML 1,000 ML IV SCH ×2 (05:12→09:30)
[2021-03-04 05:15] LABS: BASOPHILS # (AUTO) 0.1 X10^3/uL (0.0-0.1); BASOPHILS % (AUTO) 0.7 % (0.2-1.0); EOSINOPHILS # (AUTO) 0.1 x10^3/uL (0.0-0.2); EOSINOPHILS % (AUTO) 1.8 % (0.9-2.9); HEMATOCRIT 35.9 % (36.0-47.0); HEMOGLOBIN 11.5 g/dL (12.0-16.0); MEAN CORPUSCULAR HEMOGLOBIN 26.8 pg (27.0-34.0); MEAN CORPUSCULAR HGB CONC 32.1 g/dL (33.0-35.0); MEAN CORPUSCULAR VOLUME 83.4 fL (80.0-100.0); MEAN PLATELET VOLUME 10.9 fL (7.4-11.0); MONOCYTES # (AUTO) 0.5 x10^3/uL (0.3-0.8); MONOCYTES % (AUTO) 6.3 % (0.0-13.0); NEUTROPHILS # (AUTO) 4.2 x10^3/uL (2.2-4.8); NEUTROPHILS % (AUTO) 53.2 % (42.0-75.0); PLATELET COUNT 197 X10^3/uL (150.0-450.0); RED BLOOD COUNT 4.31 X10^6/uL (3.5-5.4); RED CELL DISTRIBUTION WIDTH 14.1 % (11.6-16.5); WHITE BLOOD COUNT 7.9 X10^3/uL (3.6-10.0)
[2021-03-04 06:03] LABS: BLOOD UREA NITROGEN 7 mg/dL (7-18); CARBON DIOXIDE 23.9 mmol/L (21-32); CHLORIDE 108 mmol/L (98-107); SODIUM 143 mmol/L (136-145)
[2021-03-04 06:04] LABS: ALANINE AMINOTRANSFERASE 15 Units/L (12-78); ALBUMIN 2.6 g/dL (3.4-5.0); ALKALINE PHOSPHATASE 100 Units/L (46-116); ASPARTATE AMINO TRANSFERASE 9 Units/L (15-37); COR CA(FOR HYPOALB) 9.1 mg/dL (8.5-10.1); COR NA(FOR HYPERGLY) 144 mmol/L (136-145); TOTAL PROTEIN 5.5 g/dL (6.4-8.2)
[2021-03-04 06:07] LABS: CREATININE 0.75 mg/dL (0.55-1.02); eGFR NON BLACK RACES > 60 (>60)
[2021-03-04] MEDS ORDERED: POTASSIUM CHL 60 MEQ/NS 0.45% 500 ML IV PRN (06:19)
[2021-03-04] MEDS ORDERED: MICRO K EXTEN CAP 10 MEQ PO PRN (06:19)
[2021-03-04] MEDS ORDERED: KLOR-CON PO PRN (06:19)
[2021-03-04] MEDS ORDERED: POTASSIUM CHL 40 MEQ/NS 0.45% 500 ML IV PRN (06:19)
[2021-03-04] MEDS ORDERED: K-DUR TAB 20 MEQ PO PRN (06:19)
[2021-03-04] MEDS ORDERED: POTASSIUM CHLORIDE LIQ 20 MEQ UDC PO PRN (06:19)
[2021-03-04] MEDS ORDERED: K-RIDER 10 MEQ/NS 100 ML 10 MEQ/100 ML BAG IV PRN (06:19)
[2021-03-04] MEDS ORDERED: IMITREX INJ SC ONE ×2 (08:55→09:22)
[2021-03-04] MEDS ORDERED: TORADOL 30 MG VIAL IVP ONE (08:57)
[2021-03-04] MEDS ORDERED: LEVAQUIN PREMIX IV 500 MG 500 MG/100 ML BAG IV SCH (09:00)
[2021-03-04] MEDS ORDERED: TORADOL 30 MG VIAL ONE (09:22)
[2021-03-04] MEDS: MUCINEX DM PO SCH (09:29)
[2021-03-04] MEDS: MICRO K EXTEN CAP 10 MEQ PO SCH (09:29)
[2021-03-04] MEDS: ZyrTEC TAB 10 MG PO SCH (09:29)
[2021-03-04] MEDS: ROCEPHIN 1 GRAM IV PREMIX 1 G/50 ML IV.SOLN. IV SCH (09:30)
[2021-03-04] MEDS: NORCO 5/325 MG TAB PO PRN (14:35)
[2021-03-04 16:41] VITALS: BP 117/56
== END 2021-03-04 17:40 | disposition home or self-care (01) ==
LOC: MED/SURG
PROVIDERS: ADMIT Internal Medicine; ATTEND Internal Medicine
DX: K21.9 Gastro-esophageal reflux disease without esophagitis; E87.6 Hypokalemia; R53.1 Weakness; Z20.822 Contact with and (suspected) exposure to COVID-19; E86.0 Dehydration; G43.809 Other migraine, not intractable, without status migrainosus; J01.90 Acute sinusitis, unspecified